=== PATIENT | female | born 1970 | race Asian ===

== ENCOUNTER 2018-03-07 17:28 | Inpatient (IN) ==
--- NOTE | 2018-03-07 18:01 | Emergency Department Note ---
Disposition Clinical Impression: Pleural effusion, Enlarged lymph nodes, Mass of upper lobe of right lung Disposition: Admitted As Inpatient Condition: Good General Adult HPI - General Chief complaint: ED Shortness of Breath/Dyspnea Stated complaint: "possible lung collapsed" Time Seen by Provider: 03/07/18 17:38 Source: patient, agent contract clerk Limitations: no limitations Nursing Notes Reviewed: Yes Vital Signs Reviewed: Yes - History of Present Illness HPI Narrative: 47 y/o F without siginificant medical history comes in with a possible diagnosis of R side pneumothorax diagnosed via CXR during an orthopedist appointment today. Patient states that 4-5 months ago she fell, hitting her right ride on a table. She had some immediate pain following that incident but the pain resolved on its own. She states that she then noticed onset of a non- productive cough shortly after that which has persisted for the last 3-4 months. She noticed onset of pain again in her right lateral and anterior chest 2 months ago worsened with breathing and exertion. She had onset of SOB 1 month ago along with the pain. She cannot recall an exact mechanism or time when either began. During evaluation for the pain she had a CXR done earlier today which revealed a likely pneumothorax. She denies fever, nausea, vomiting, diarrhea, LOC or abd pain. Pain Scale: 8 - Related Data Home Medications Medication Instructions Recorded Confirmed No Known Home Drugs 03/07/18 03/07/18 Allergies Allergy/AdvReac Type Severity Reaction Status Date / Time No Known Allergies Allergy Verified 03/08/16 14:08 Review of Systems: As Per HPI Constitutional: Denies: fever, chills, weight change, night sweats ENT ED: Denies: congestion Cardiovascular: Reports: chest pain, dyspnea on exertion Respiratory: Reports: dyspnea Gastrointestinal: Denies: abdominal pain, nausea, vomiting Genitourinary: Denies: urgency, dysuria Musculoskeletal: Denies: back pain, neck pain Integumentary: Denies: rash, abrasion, lesions Neurological: Denies: headache, weakness, numbness Endocrine: Denies: fatigue Past Medical History - Past Medical History Medical history: Reports: no medical history Psychiatric history: Reports: no psych history - Social History Smoking Status: Never smoker Smokeless Tobacco Status: No Alcohol use: Reports: none Physical Exam General: Well appearing, nontoxic, no acute distress Head: Normocephalic Atraumatic Eyes: PERRL, EOMI ENT: Airway patent, no stridor Neck: supple, no meningismus Chest: Decreased breath sounds on the right Cardiac: Regular rate and rhythm, no murmurs, rubs or gallops Abdomen: soft, nontender, nondistended; no guarding, rebound, or tenderness to percussion Musculoskeletal: Calves symmetric, nontender, no palpable cord Skin: No rash, normal skin tone Neuro: Alert and Oriented to person, place, and time; No focal deficit, CN 2-12 symmetric and intact - General Limitations: no limitations General appearance: alert, in no apparent distress Course - Reevaluation(s) Reevaluation #1: Patient's blood work is unremarkable. CT scan concerning for right upper lobe mass with significant pleural effusion and mediastinal lymph node enlargement concerning for metastatic disease. I did discuss with CT surgery and they recommended oncology consult as well as possible IR biopsy but that they did not need to take any fluid off the patient due to concern for reexpansion injury. They will evaluate the patient if further need is considered. At this time they do not need to consult on the patient in the hospital. Patient's clinical condition has likely been progressive over the last several weeks to month. The patient is not an extremist. No intervention within the emergency department. Patient be admitted to the hospitalist service. - Consultations Consultation #1: Discussed with hospitalist. Patient accepted for admission. Vital Signs Temperature 98 F 03/07/18 17:36 Pulse Rate 89 03/07/18 17:36 Respiratory Rate 24 03/07/18 17:36 Blood Pressure 141/95 03/07/18 17:36 O2 Sat by Pulse Oximetry 98 03/07/18 17:36 Temperature 98.7 F 03/08/18 19:58 Pulse Rate 83 03/08/18 19:58 Respiratory Rate 16 03/08/18 19:58 Blood Pressure 125/87 03/08/18 19:58 O2 Sat by Pulse Oximetry 95 03/08/18 19:58 Oxygen Delivery Oxygen Delivery Room Air Medical Decision Making - Lab Data Result diagrams: 03/08/18 00:41 03/08/18 00:41 Lab Results 03/07/18 03/07/18 03/07/18 Range/Units 18:00 18:00 18:00 WBC 7.4 (4.3-11.1) K/mcL RBC 4.81 (3.82-4.97) M/mcL Hgb 14.4 (11.5-15.4) g/dL Hct 44.6 (35.3-44.9) % MCV 92.7 (83.0-100.0) fL MCH 29.9 (28.0-33.3) pg MCHC 32.3 (31.6-35.5) g/dL RDW 13.5 (11.5-14.5) % Plt Count 327 (140-400) K/mcL MPV 9.9 (9.4-12.4) fL Immature Gran % 0.4 (0-4) % Seg Neutrophils % 64.1 % Lymphocytes % 24.4 % Monocytes % 8.1 % Eosinophils % 2.3 % Basophils % 0.7 % Neutrophils # 4.8 (1.6-8.9) K/mcL Lymphocytes # 1.8 (0.6-4.6) K/mcL Monocytes # 0.6 (0.0-1.3) K/mcL Eosinophils # 0.2 (0.0-0.6) K/mcL Basophils # 0.1 (0.0-0.2) K/mcL PT 11.3 (9.4-12.1) Seconds INR 1.0 Sodium 138 (136-145) mEq/L Potassium 3.9 (3.5-5.1) mEq/L Chloride 105 (98-107) mEq/L Carbon Dioxide 27 (23-29) mEq/L BUN 13 (6-20) mg/dL Creatinine 0.53 L (0.60-1.20) mg/dL Est GFR ( Amer) > 60 (> 60) Est GFR (Non-Af Amer) > 60 (> 60) BUN/Creatinine Ratio 25 (6-26) Glucose 91 (70-105) mg/dL Calculated Osmolality 286 (280-300) Lactic Acid (0.5-2.2) mmol/L Calcium 9.0 (8.6-10.3) mg/dL Troponin I < 0.03 (< 0.04) ng/mL 03/07/18 Range/Units 18:00 WBC (4.3-11.1) K/mcL RBC (3.82-4.97) M/mcL Hgb (11.5-15.4) g/dL Hct (35.3-44.9) % MCV (83.0-100.0) fL MCH (28.0-33.3) pg MCHC (31.6-35.5) g/dL RDW (11.5-14.5) % Plt Count (140-400) K/mcL MPV (9.4-12.4) fL Immature Gran % (0-4) % Seg Neutrophils % % Lymphocytes % % Monocytes % % Eosinophils % % Basophils % % Neutrophils # (1.6-8.9) K/mcL Lymphocytes # (0.6-4.6) K/mcL Monocytes # (0.0-1.3) K/mcL Eosinophils # (0.0-0.6) K/mcL Basophils # (0.0-0.2) K/mcL PT (9.4-12.1) Seconds INR Sodium (136-145) mEq/L Potassium (3.5-5.1) mEq/L Chloride (98-107) mEq/L Carbon Dioxide (23-29) mEq/L BUN (6-20) mg/dL Creatinine (0.60-1.20) mg/dL Est GFR ( Amer) (> 60) Est GFR (Non-Af Amer) (> 60) BUN/Creatinine Ratio (6-26) Glucose (70-105) mg/dL Calculated Osmolality (280-300) Lactic Acid 0.9 (0.5-2.2) mmol/L Calcium (8.6-10.3) mg/dL Troponin I (< 0.04) ng/mL
[2018-03-07 18:16] LABS: Basophils # 0.1 K/mcL (0.0-0.2); Basophils % 0.7 %; Eosinophils # 0.2 K/mcL (0.0-0.6); Eosinophils % 2.3 %; Hematocrit 44.6 % (35.3-44.9); Hemoglobin 14.4 g/dL (11.5-15.4); Immature Granulocytes % 0.4 % (0-4); Lymphocytes # 1.8 K/mcL (0.6-4.6); Lymphocytes % 24.4 %; Mean Corpuscular HGB Conc 32.3 g/dL (31.6-35.5); Mean Corpuscular Hemoglobin 29.9 pg (28.0-33.3); Mean Corpuscular Volume 92.7 fL (83.0-100.0); Mean Platelet Volume 9.9 fL (9.4-12.4); Monocytes # 0.6 K/mcL (0.0-1.3); Monocytes % 8.1 %; Neutrophils # 4.8 K/mcL (1.6-8.9); Platelet Count 327 K/mcL (140-400); Red Blood Count 4.81 M/mcL (3.82-4.97); Red Cell Distribution Width 13.5 % (11.5-14.5); Segmented Neutrophils % 64.1 %
[2018-03-07 18:26] LABS: Prothrombin Time 11.3 Seconds (9.4-12.1)
[2018-03-07 18:35] LABS: BUN/Creatinine Ratio 25 (6-26); Blood Urea Nitrogen 13 mg/dL (6-20); Carbon Dioxide 27 mEq/L (23-29); Chloride 105 mEq/L (98-107); Glucose 91 mg/dL (70-105); Osmolality,Calculated 286 (280-300); Potassium 3.9 mEq/L (3.5-5.1); Sodium 138 mEq/L (136-145); eGFR For Non-African Americans > 60 (> 60)
[2018-03-07 18:36] LABS: Troponin I < 0.03 ng/mL (< 0.04)
[2018-03-07] MEDS ORDERED: Acetaminophen 325 MG TABLET PO PRN (21:40)
[2018-03-07] MEDS ORDERED: Albuterol 2.5 MG/3 ML NEBULIZER IH PRN (21:40)
[2018-03-07] MEDS ORDERED: Naloxone 0.4 MG/ML INJ IVP PRN (21:40)
--- NOTE | 2018-03-07 22:07 | Internal Med History&Physical ---
Date of Encounter: 03/07/18 Time of Encounter: 19:50 Internal Medicine - H&P: HPI Chief complaint: chest pain; SOB Admitted From: Emergency Dept Plans for Post Hospital Care: Home History of present illness: Ms. Jauregui is a 47 year old female [facility] of [facility] pain and suspected pneumothorax. She was seeing someone in orthopedics for pain in her shoulder. They obtained shoulder x-ray followed by chest x-ray confirming what appeared to be a large pleural effusion initially thought to be pneumothorax. She was sent to the ER with complaints of chest pain and shoulder pain in her right side as well as a dyspnea. Workup included a CT of the chest which confirmed a large right pleural effusion and a soft tissue mass in the right upper lobe with invasion to the mediastinum concerning for malignancy. As such, she was admitted to hospitalist service. Of note, patient is of [place] descent and only speaks Mandarin language. There was an custody assistant in the ER who interpreted all the history, questions, and conveyed our information to the patient. I met patient in the ER and discussed the situation with her via the custody assistant. Patient states she has been having chest pain and shortness of breath for about 1 month duration now. She has had no fevers, chills, night sweats, weight loss, hemoptysis, or wheezing. She has had shortness of breath especially with exertion. She has had right-sided chest pain. She has had purulent and mucus productive sputum. She does not smoke and never has smoked. However, she lives with several roommates who do smoke. 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 She has been in the [place] 17 years. She denies any exposure in the past to tuberculosis either in [place] or [facility]. There is no family history of lung pathology or lung cancer that she is aware of. Both her parents are still alive and neither of them have any lung pathology. Past Med Surg Social Fam HX - Past Medical History Attestation: Yes The following information was validated with the patient. Source: other (custody assistant) Medical history: no medical history Psychiatric history: no psych history - Past Surgical History Surgical History: no surgical history - Social History Smoking Status: Never smoker Smokeless Tobacco Status: No Alcohol use: none Drug use: none Occupational status: employed Current living situation: Other (with roommates/co-workers) Activity Level: Independent ambulation Recent Out of Country Travel Within the Last 8 Weeks: No - Family History Mother Living Status: Still Living Hx Family Respiratory Disorders: No Hx Family Cancer: No Father Living Status: Still Living Hx Family Respiratory Disorders: No Hx Family Cancer: No Internal Medicine - H&P: Meds No Known Home Drugs 03/07/18 [History] 3 Allergy/AdvReac Type Severity Reaction Status Date / Time No Known Allergies Allergy Verified 03/08/16 14:08 Review of systems: via custody assistant - Constitutional Constitutional: no chills, no fatigue, no fever(s), no night sweats, no weight loss - EENT Eyes: no blurry vision, no change in vision Ears: no ear pain, no tinnitus Nose, mouth and throat: no nasal congestion, no sore throat - Cardiovascular Cardiovascular ROS IM: chest pain, dyspnea, dyspnea on exertion, no orthopnea, no paroxysmal nocturnal dyspnea, no syncope - Respiratory Respiratory: cough, dyspnea, dyspnea on exertion, chest congestion, excessive phlegm production, change in phlegm color, no hemoptysis, no wheezing - Gastrointestinal Gastrointestinal: no abdominal pain, no diarrhea, no hematemesis, no hematochezia, no melena, no vomiting - Genitourinary Genitourinary: no dysuria, no flank pain, no hematuria - Musculoskeletal Musculoskeletal ROS IM: no arthralgias, no back pain - Integumentary Integumentary IM: no rash, no jaundice - Neurological Neurological ROS: no disequilibrium, no dizziness, no focal weakness, no frequent falls - Psychiatric Psychiatric: no anxiety, no depression - Endocrine Endocrine IM: no cold intolerance, no flushing, no polydipsia, no polyuria - Hematologic/Lymphatic Hematologic/Lymphatic: no easy bruising - Allergic/Immunologic Allergic/Immunologic: no wheezing, no GI upset with certain foods - Constitutional Vitals: Temp Pulse Resp BP Pulse Ox 97.6 F 83 14 133/92 95 03/07/18 21:25 03/07/18 21:25 03/07/18 21:25 03/07/18 21:25 03/07/18 21:25 General appearance: Present: cooperative, A&O X 3, pleasant, no acute distress Exam: see below - Head Head exam: Present: atraumatic, normal inspection - Eye Eye exam: Present: EOMI, normal appearance, PERRL. Absent: scleral icterus Pupils: Present: normal accommodation - ENT ENT exam: Present: mucous membranes moist, normal exam, normal oropharynx - Neck Neck exam general surgery: Present: full ROM, normal inspection, supple. Absent : lymphadenopathy, tenderness, nuchal rigidity, thyromegaly - Respiratory Respiratory exam: Present: decreased breath sounds (right base to upper third lung field). Absent: chest wall tenderness, rales, respiratory distress, rhonchi, wheezes - Cardiovascular Cardiovascular exam: Present: RRR, +S1, +S2. Absent: diastolic murmur, systolic murmur - GI/Abdominal GI/Abdominal exam: Present: normal bowel sounds, soft. Absent: guarding, hepatomegaly, mass, rebound, splenomegaly, tenderness - Extremities Exam Extremities exam: Present: full ROM, normal capillary refill, warm, radial pulses palpable and symmetrical. Absent: calf tenderness, joint swelling, pedal edema, tenderness - Back Exam Back exam: Present: normal inspection. Absent: CVA tenderness (L), CVA tenderness (R) - Neurological Exam Neurological exam: Present: alert, CN II-XII intact, oriented X3, no focal deficits - Psychiatric Psychiatric exam: Present: normal affect, normal mood - Skin Skin exam: Present: dry, intact, warm Additional comments: bruising on posterior thorax verified via custody assistant that she practices cupping and coining through her culture/background Internal Med - H&P Results - Labs CBC & Chem 7: 03/07/18 18:00 03/07/18 18:00 - EKG Data -: EKG Interpreted by Myself - EKG Data Prior EKG available for review: no EKG comments: 03/08/18 00:44 NSR; right and left arm leads reversed - Diagnostic Studies CT scan - chest Status: image reviewed by me (large right pleural effusion) - Assessment and plan (1) Pleural effusion Current Visit: Yes Status: Acute Assessment and plan: 1. Suspect malignant effusion but will treat for parapneumonic effusion until proven otherwise. 2. I ordered blood and sputum cultures. 3. Will place on Zosyn and Levaquin to cover CAP and aspiration type organisms. 4. Consult Pulmonary as she will likely need bronchoscopy and tbbx as well as diagnostic and therapeutic thoracentesis. 5. Consult oncology. 6. Oxygen and aerosols as needed for support. 7. All above explained to patient via custody assistant. (2) Chest pain Current Visit: Yes Status: Acute Assessment and plan: 1. Suspect pleuritic chest pain from effusion. 2. Will trend troponins and EKG's. 3. Will order ECHO. 4. Pain control as necessary. Qualifiers: Chest pain type: pleurodynia Qualified Code(s): R07.81 - Pleurodynia (3) Mass of upper lobe of right lung Current Visit: Yes Status: Acute Assessment and plan: 1. Patient in need of diagnostic work-up and tissue biopsy as above. 2. Oncology consulted. (4) Tenuous home situation Current Visit: Yes Status: Suspected Assessment and plan: 1. Concern for unsafe home situation -- living with roommates/co-workers who smoke, doesn't speak [place] despite living in [facility] 17 years, etc. 2. She does not report any concerns via custody assistant though. 3. Filler Spreader consulted. (5) DVT prophylaxis Current Visit: Yes Status: Acute Assessment and plan: 1. Heparin SQ.
[2018-03-07] MEDS: Ipratropium/Albuterol Neb 3 ML IH SCH (22:10)
[2018-03-07] MEDS: *HR* HYDROcodone/Acet 5/325 mg TABLET PO PRN (23:04)
[2018-03-07] MEDS: 0.9 % Sodium Chloride w KCl 20 MEQ/1,000 ML MLS IVC SCH (23:05)
[2018-03-07] MEDS: *HR* Heparin 5,000 UNIT/ML VIAL SQ SCH (23:05)
[2018-03-07] MEDS: Levofloxacin 750 MG/150 ML 750 MG/150 ML BAG IVPB SCH (23:06)
[2018-03-08 01:34] LABS: Basophils # 0.1 K/mcL (0.0-0.2); Basophils % 0.6 %; Eosinophils # 0.1 K/mcL (0.0-0.6); Eosinophils % 1.6 %; Hematocrit 40.8 % (35.3-44.9); Hemoglobin 13.5 g/dL (11.5-15.4); Immature Granulocytes % 0.4 % (0-4); Lymphocytes # 1.5 K/mcL (0.6-4.6); Lymphocytes % 17.8 %; Mean Corpuscular HGB Conc 33.1 g/dL (31.6-35.5); Mean Corpuscular Hemoglobin 30.2 pg (28.0-33.3); Mean Corpuscular Volume 91.3 fL (83.0-100.0); Mean Platelet Volume 10.2 fL (9.4-12.4); Monocytes # 0.6 K/mcL (0.0-1.3); Monocytes % 7.4 %; Platelet Count 313 K/mcL (140-400); Red Blood Count 4.47 M/mcL (3.82-4.97); Red Cell Distribution Width 13.5 % (11.5-14.5); Segmented Neutrophils % 72.2 %
[2018-03-08 01:40] LABS: Prothrombin Time 11.4 Seconds (9.4-12.1)
[2018-03-08 01:43] LABS: Activated Partial Thrombo Time 32.9 Seconds (26.0-36.0)
[2018-03-08] MEDS: Piperacillin/Tazobactam 3.375 GM in 0.9 % Sodium Chloride Mini Bag 100 ML IVPB SCH ×3 (01:49→15:50)
[2018-03-08 01:55] LABS: Alanine Aminotransferase 30 Units/L (7-52); Albumin 3.6 g/dL (3.5-5.7); Albumin/Globulin Ratio 1.1 (1.1-2.2); Alkaline Phosphatase 50 Units/L (34-104); Aspartate Amino Transferase 27 Units/L (13-39); BUN/Creatinine Ratio 22 (6-26); Bilirubin,Total 0.3 mg/dL (0.3-1.0); Blood Urea Nitrogen 10 mg/dL (6-20); Calcium 8.9 mg/dL (8.6-10.3); Carbon Dioxide 23 mEq/L (23-29); Chloride 106 mEq/L (98-107); Globulin 3.4 g/dL (2.4-3.5); Glucose 108 mg/dL (70-105); Magnesium 1.8 mg/dL (1.6-2.6); Osmolality,Calculated 286 (280-300); Potassium 3.5 mEq/L (3.5-5.1); Sodium 138 mEq/L (136-145); eGFR For Non-African Americans > 60 (> 60)
[2018-03-08] MEDS: Ipratropium/Albuterol Neb 3 ML IH SCH ×4 (03:48→21:56)
[2018-03-08] MEDS: *HR* Heparin 5,000 UNIT/ML VIAL SQ SCH ×2 (06:35→18:36)
--- NOTE | 2018-03-08 08:35 | Pulmonology Consult Note ---
<Citlaly Wagner - Last Filed: 03/08/18 13:05> Date of Encounter: 03/08/18 Medications and Allergies No Known Home Drugs 03/07/18 [History] 3 Allergy/AdvReac Type Severity Reaction Status Date / Time No Known Allergies Allergy Verified 03/08/16 14:08 All Systems: The remainder of the systems were reviewed and are negative Results - Laboratory Findings CBC and BMP: 03/08/18 00:41 03/08/18 00:41 PT/INR, D-dimer PT 11.4 Seconds (9.4-12.1) 03/08/18 00:41 Abnormal lab findings: Abnormal lab results Creatinine 0.46 mg/dL (0.60-1.20) L 03/08/18 00:41 Glucose 108 mg/dL (70-105) H 03/08/18 00:41 - Microbiology Findings Microbiology Findings: Microbiology, Last 48 Hours 03/07/18 22:08 Blood Culture - Preliminary Peripheral Venipuncture Culture is incubating and being continuously monitored for growth. Final report to follow. 03/07/18 22:08 Blood Culture - Preliminary Peripheral Venipuncture Culture is incubating and being continuously monitored for growth. Final report to follow. - Clinical Findings Intake & Output: Intake & Output 03/07/18 03/08/18 03/08/18 23:59 07:59 15:59 Intake Total 0 / 0 250 / 250 Output Total 0 / 0 Balance 0 / 0 250 / 250 Weight 53.5 kg Consult Discharge Plan - Plan Referrals: NONE,PCP [Primary Care Provider] - - Attending Attestation I examined this patient and my medical decision-making was reviewed with the Resident Physician. I agree with the documented findings, disposition and treatment plan as described except to the extent set forth below. Patient seen and examined. Labs, radiology, chart personally reviewed. Agree with resident's history and physical, assessment, plan with following comments: REGIONAL EHS MANAGER: Patient follows commands, Pulmonary: Patient with massive right-sided pleural effusion which was examined with ultrasound and explained to the patient was transudate all the risks and benefits of the diagnostic and therapeutic draining the fluid with thoracentesis. I discussed with primary team differential diagnosis is broad, however concerned malignancies with size of the effusion and to repeat CT chest after draining the fluid and if there is any mass/lesion then we will plan for bronchoscopy. Patient can eat at this time and there is any further procedures need to be done then we will keep her nothing by mouth. Thank you for consultation. <Vineet Newby - Last Filed: 03/08/18 16:01> Date of Encounter: 03/08/18 Time of Encounter: 11:00 Assessment and Plan (1) Pleural effusion Current Visit: Yes Status: Acute -Is hard to delineate the exact cause of pleural effusion. It is difficult to obtain patient's past medical history because she does not understand [place], and secondly patient has no health insurance therefore hasn't seen a provider for a long time. CTA showed a giant pleural effusion and she is status post thoracentesis which drained 1.5 L of pleural fluid. Also evidence of 4.63.5 Center soft tissue mass centered in the right upper lobe in patient with concerns for neoplasm. -Pleural fluid analysis is pending , cultures pending - She currently satting at 96% on room air. We will continue to monitor (2) Chest pain Current Visit: Yes Status: Acute -Patient came to the ER with chest pain. Initial workup was negative for any troponins EKG is normal her echo showed LVEF of 60-65% with normal wall function abnormalities. -She is currently status post thoracentesis. Her chest pain is better. -Continue to monitor. Pain control RPN Qualifiers: Chest pain type: pleurodynia Qualified Code(s): R07.81 - Pleurodynia History of Present Illness Consult date: 03/08/18 Chief complaint: chest pain History of present illness: Ms. Juventino velasco is a 47-year-old female who presented to the ER yesterday because of chest pain. Her workup was negative for troponins, EKG was normal. CTA showed large right pleural effusion with complete atelectasis of the right middle lobe and lower lobe. There is also a 4.63.5 cm soft tissue mass in the right upper lobe. We are consulted for this. Patient is currently status post thoracentesis and approximately 1.5 L of serosanguineous fluid was drained. Patient tolerated the procedure very well and endorses that she is breathing better as of now. Past Med Surg Social Fam HX - Past Medical History Medical history: no medical history Psychiatric history: no psych history - Past Surgical History Surgical History: no surgical history - Social History Smoking Status: Never smoker Smokeless Tobacco Status: No Alcohol use: none Drug use: none - Family History Mother Living Status: Still Living Hx Family Respiratory Disorders: No Hx Family Cancer: No Father Living Status: Still Living Hx Family Respiratory Disorders: No Hx Family Cancer: No All Systems: The remainder of the systems were reviewed and are negative Physical Examination Vital Signs: Vital Signs, Last 4 Hours Temp Pulse Resp BP Pulse Ox 03/08/18 06:43 98.1 F 93 12 119/86 96 General appearance: no acute distress Effort: normal (s/p thoracentesis) Auscultation: bilateral: clear Cardiovascular: regular rate and rhythm Gastrointestinal: soft, non-tender, non-distended Extremities: no cyanosis, no edema, no clubbing Results - Laboratory Findings CBC and BMP: 03/08/18 00:41 03/08/18 00:41 PT/INR, D-dimer PT 11.4 Seconds (9.4-12.1) 03/08/18 00:41 Abnormal lab findings: Abnormal lab results Creatinine 0.46 mg/dL (0.60-1.20) L 03/08/18 00:41 Glucose 108 mg/dL (70-105) H 03/08/18 00:41 - Microbiology Findings Microbiology Findings: Microbiology, Last 48 Hours 03/07/18 22:08 Blood Culture - Preliminary Peripheral Venipuncture Culture is incubating and being continuously monitored for growth. Final report to follow. 03/07/18 22:08 Blood Culture - Preliminary Peripheral Venipuncture Culture is incubating and being continuously monitored for growth. Final report to follow. - Clinical Findings Intake & Output: Intake & Output 03/07/18 03/08/18 03/08/18 23:59 07:59 15:59 Intake Total 0 / 0 Output Total 0 / 0 Balance 0 / 0 Weight 53.5 kg
[2018-03-08] MEDS ORDERED: Isovue-370 500 ML INFUS..BTL IV ONE ×2 (11:47→17:48)
--- NOTE | 2018-03-08 11:49 | Procedure Note ---
<Citlaly Wagner - Last Filed: 03/08/18 13:04> Procedure: I examined this patient and my medical decision-making was reviewed with the Resident Physician. I agree with the documented findings, disposition and treatment plan as described except to the extent set forth below. I have personally supervised Dr. Newby performing procedure without immediate complications. <Vineet Newby - Last Filed: 03/08/18 15:59> Date of procedure: 03/08/18 Pre-op diagnosis: pleural effusion Post-op diagnosis: same Procedure: Informed consent was obtained from the patient. Time out performed. Area of pleural effusion was identified by ultrasound and site was marked. Area over right back was prepped and draped in normal sterile technique, and anesthetized using 3cc of lidocaine. A 20 guage needle/catheter was advanced into the pleural space and serosanguineous fluid was seen in the syringe. Approximately 1500cc of fluid was drained. Pt tolerated the procedure well, EBL was none. Post -procedure CT showed resolution of the right sided pleural effusion with no evidence of pneumothorax. Specimen was sent to lab. Anesthesia: local Surgeon: Citlaly Wagner Was there an assistant county attorney present: Yes Health Aide: Vineet Newby Estimated blood loss (cc): 2 Specimen: pleural fluid Condition: stable Disposition: floor
[2018-03-08 15:30] LABS: Total Protein,Pleural Fluid 5.3 g/dL (No Ref Range)
--- NOTE | 2018-03-08 16:14 | Oncology Inp Consult Note ---
<Sofi Villanueva Amber - Last Filed: 03/08/18 17:46> Date of Encounter: 03/08/18 Time of Encounter: 15:30 Assessment and Plan (1) Mass of upper lobe of right lung Status: Acute Assessment and plan: CT chest reveals a large right upper lobe heterogeneous mass abutting the anterior mediastinum measuring 3.5 x 3.9 cm., diffuse mediastinal lymphadenopathy involving the paratracheal, subcarinal and right suprahilar regions, pleural-based nodules seen throughout the right chest, with diffuse pleural enhancement and a large right-sided pleural effusion. There are 2 small low-attenuation lesions under 1 cm in size noted within the liver which are too small to characterize-CT abdomen/pelvis for further assessment of abdomen CBC and CMP mainly unremarkable, LDH normal Findings are concerning for malignancy- lymphoma or lung primary, among others. S/P right thoracentesis-cytology ordered and pending. Need tissue bx-made NPO for tomorrow AM-bx dependant upon CT abdomen/pelvis results-recommend core needle bx versus bronchoscopy Pulmonology consulted Findings and plan discussed with patient at bedside with use of interpreting service. - Data of Consult Patient: new to practice Consult date: 03/08/18 Requesting Physician: James Broderick Primary Care Provider: PCP NONE - Consult Narrative Reason for consult: Right upper lobe lung mass History of present illness: Ms. Jauregui is a 47 year old female in [facility] until about 2 months prior to current admission. Patient states that about 2 months ago she began to experience right upper back pain/scapular/chest pain that was exacerbated by inspiratory efforts. She reports no prior injury. This pain was not relieved by NSAIDs, cupping massage and eventually led her to presentation to orthopedics on 2017. A chest x-ray was obtained with concern for pneumothorax with large right sided pleural effusion and patient was asked to present to the ER. CT of the chest revealed a large right upper lobe heterogeneous mass abutting the anterior mediastinum measuring 3.5 x 3.9 cm. There is also diffuse mediastinal lymphadenopathy involving the paratracheal, subcarinal and right suprahilar regions. There also several metastatic pleural-based nodules seen throughout the right chest, with diffuse pleural enhancement and a large right- sided pleural effusion. No pneumothorax was identified. Patchy ground glass within right lung concerning for infectious process. There are 2 small low- attenuation lesions under 1 cm in size noted within the liver which are too small to characterize. Ms. Jauregui speaks Mandarin and very little French, a health system appointed interpreting service was utilized during our visit today. In addition to the pain as described above, Ms. Jauregui reports that she has experienced worsening SOB and non productive cough over the past month. She denies hemoptysis. Her pain and SOB have increased to the point that she has been unable to work over the past month. She needs a rest break after climbing one flight of stairs. She reports she feels SOB with talking or long conversations. She denies fevers or chills. She is a never smoker. She denies a personal or family history of cancer. Past Med Surg Social Fam HX - Past Medical History Medical history: no medical history Psychiatric history: no psych history - Past Surgical History Surgical History: no surgical history - Social History Smoking Status: Never smoker Smokeless Tobacco Status: No Alcohol use: none Drug use: none - Family History Mother Living Status: Still Living Hx Family Respiratory Disorders: No Hx Family Cancer: No Father Living Status: Still Living Hx Family Respiratory Disorders: No Hx Family Cancer: No Medications and Allergies No Known Home Drugs 03/07/18 [History] 3 Allergy/AdvReac Type Severity Reaction Status Date / Time No Known Allergies Allergy Verified 03/08/16 14:08 Constitutional: Present: anorexia, fatigue, weakness. Absent: chills, fever(s) , night sweats, weight loss Eyes: Absent: change in vision Nose, mouth and throat: Absent: dysphagia Cardiovascular: Present: as per HPI, chest pain, dyspnea, orthopnea Additional comments: pain radiating to right scalpula Respiratory: Present: cough, dyspnea. Absent: hemoptysis Gastrointestinal: Absent: abdominal pain, nausea, vomiting Musculoskeletal: Present: muscle weakness Integumentary: Absent: wounds Neurological: Absent: focal weakness Hematologic/Lymphatic: Present: as per HPI Oncology - Exam - Constitutional Vitals: Temp Pulse Resp BP Pulse Ox 98.0 F 80 15 129/85 97 03/08/18 14:18 03/08/18 14:18 03/08/18 16:07 03/08/18 14:18 03/08/18 16:07 General appearance: cooperative, no acute distress, no febrile - Head Head exam: Present: atraumatic - ENT ENT exam: Present: mucous membranes moist - Neck Additional comments: right cervical adenopathy - Respiratory Respiratory exam: Present: decreased breath sounds. Absent: respiratory distress - Cardiovascular Cardiovascular exam: Present: RRR, +S1, +S2 - GI/Abdominal GI/Abdominal exam: Present: normal bowel sounds, soft. Absent: guarding, rebound, tenderness - Extremities Exam Extremities exam: Present: normal inspection. Absent: calf tenderness - Neurological Exam Neurological exam: Present: alert, oriented X3, no focal deficits, strengths equal and symetr throughout - Psychiatric Psychiatric exam: Present: normal affect, normal mood - Skin Skin exam: Present: dry, intact, normal color, warm Oncology - Results Labs: 3 03/08/18 03/08/18 03/08/18 12:00 11:47 11:47 WBC RBC Hgb Hct MCV MCH MCHC RDW Plt Count MPV Immature Gran % Seg Neutrophils % Lymphocytes % Monocytes % Eosinophils % Basophils % Neutrophils # Lymphocytes # Monocytes # Eosinophils # Basophils # PT INR APTT Sodium Potassium Chloride Carbon Dioxide BUN Creatinine Est GFR ( Amer) Est GFR (Non-Af Amer) BUN/Creatinine Ratio Glucose Calculated Osmolality Calcium Magnesium Total Bilirubin AST ALT Alkaline Phosphatase Lactate Dehydrogenase 190 Troponin I Serum Total Protein Albumin Globulin Albumin/Globulin Ratio Pleural pH 8.00 Pleural Total Protein 5.3 Pleural Glucose 67 Pleural Amylase 36 3 03/08/18 03/08/18 03/08/18 06:17 00:41 00:41 WBC RBC Hgb Hct MCV MCH MCHC RDW Plt Count MPV Immature Gran % Seg Neutrophils % Lymphocytes % Monocytes % Eosinophils % Basophils % Neutrophils # Lymphocytes # Monocytes # Eosinophils # Basophils # PT 11.4 INR 1.0 APTT 32.9 Sodium 138 Potassium 3.5 Chloride 106 Carbon Dioxide 23 BUN 10 Creatinine 0.46 L Est GFR ( Amer) > 60 Est GFR (Non-Af Amer) > 60 BUN/Creatinine Ratio 22 Glucose 108 H Calculated Osmolality 286 Calcium 8.9 Magnesium 1.8 Total Bilirubin 0.3 AST 27 ALT 30 Alkaline Phosphatase 50 Lactate Dehydrogenase Troponin I < 0.03 Serum Total Protein 7.0 Albumin 3.6 Globulin 3.4 Albumin/Globulin Ratio 1.1 Pleural pH Pleural Total Protein Pleural Glucose Pleural Amylase 3 03/08/18 03/08/18 00:41 00:41 WBC 8.3 RBC 4.47 Hgb 13.5 Hct 40.8 MCV 91.3 MCH 30.2 MCHC 33.1 RDW 13.5 Plt Count 313 MPV 10.2 Immature Gran % 0.4 Seg Neutrophils % 72.2 Lymphocytes % 17.8 Monocytes % 7.4 Eosinophils % 1.6 Basophils % 0.6 Neutrophils # 6.0 Lymphocytes # 1.5 Monocytes # 0.6 Eosinophils # 0.1 Basophils # 0.1 PT INR APTT Sodium Potassium Chloride Carbon Dioxide BUN Creatinine Est GFR ( Amer) Est GFR (Non-Af Amer) BUN/Creatinine Ratio Glucose Calculated Osmolality Calcium Magnesium Total Bilirubin AST ALT Alkaline Phosphatase Lactate Dehydrogenase Troponin I < 0.03 Serum Total Protein Albumin Globulin Albumin/Globulin Ratio Pleural pH Pleural Total Protein Pleural Glucose Pleural Amylase Consult Discharge Plan - Plan Referrals: NONE,PCP [Primary Care Provider] - <Aiden Silver - Last Filed: 03/09/18 08:12> Date of Encounter: 03/09/18 - Data of Consult Requesting Physician: James Broderick Primary Care Provider: PCP NONE - Consult Narrative History of present illness: Pulmonary evaluation for bronchoscopy, tissue diagnosis. CT abd pelvis with contrast to be obtained later today. She had denied smoking history. I examined this patient and my medical decision-making was reviewed with the Advanced Practice Nurse, Sofi Villanueva. I agree with the documented findings, disposition and treatment plan as described except to the extent set forth below. Oncology - Exam - Constitutional Vitals: Temp Pulse Resp BP Pulse Ox 97.6 F 79 15 109/72 96 03/09/18 06:19 03/09/18 06:19 03/09/18 06:19 03/09/18 06:19 03/09/18 06:19 Oncology - Results Labs: 3 03/09/18 03/08/18 03/08/18 05:21 12:00 11:47 WBC RBC Hgb Hct MCV MCH MCHC RDW Plt Count MPV Immature Gran % Seg Neutrophils % Lymphocytes % Monocytes % Eosinophils % Basophils % Neutrophils # Lymphocytes # Monocytes # Eosinophils # Basophils # PT INR APTT Sodium Potassium Chloride Carbon Dioxide BUN Creatinine Est GFR ( Amer) Est GFR (Non-Af Amer) BUN/Creatinine Ratio Glucose POC Glucose 101 H Calculated Osmolality Calcium Magnesium Total Bilirubin AST ALT Alkaline Phosphatase Lactate Dehydrogenase 190 Troponin I Serum Total Protein Albumin Globulin Albumin/Globulin Ratio Pleural pH 8.00 Pleural Total Protein Pleural Glucose Pleural Amylase 3 03/08/18 03/08/1803/08/18 11:47 06:17 05:29 WBC RBC Hgb Hct MCV MCH MCHC RDW Plt Count MPV Immature Gran % Seg Neutrophils % Lymphocytes % Monocytes % Eosinophils % Basophils % Neutrophils # Lymphocytes # Monocytes # Eosinophils # Basophils # PT INR APTT Sodium Potassium Chloride Carbon Dioxide BUN Creatinine Est GFR ( Amer) Est GFR (Non-Af Amer) BUN/Creatinine Ratio Glucose POC Glucose 109 H Calculated Osmolality Calcium Magnesium Total Bilirubin AST ALT Alkaline Phosphatase Lactate Dehydrogenase Troponin I < 0.03 Serum Total Protein Albumin Globulin Albumin/Globulin Ratio Pleural pH Pleural Total Protein 5.3 Pleural Glucose 67 Pleural Amylase 36 3 03/08/18 03/08/18 03/08/18 00:41 00:41 00:41 WBC 8.3 RBC 4.47 Hgb 13.5 Hct 40.8 MCV 91.3 MCH 30.2 MCHC 33.1 RDW 13.5 Plt Count 313 MPV 10.2 Immature Gran % 0.4 Seg Neutrophils % 72.2 Lymphocytes % 17.8 Monocytes % 7.4 Eosinophils % 1.6 Basophils % 0.6 Neutrophils # 6.0 Lymphocytes # 1.5 Monocytes # 0.6 Eosinophils # 0.1 Basophils # 0.1 PT 11.4 INR 1.0 APTT 32.9 Sodium 138 Potassium 3.5 Chloride 106 Carbon Dioxide 23 BUN 10 Creatinine 0.46 L Est GFR ( Amer) > 60 Est GFR (Non-Af Amer) > 60 BUN/Creatinine Ratio 22 Glucose 108 H POC Glucose Calculated Osmolality 286 Calcium 8.9 Magnesium 1.8 Total Bilirubin 0.3 AST 27 ALT 30 Alkaline Phosphatase 50 Lactate Dehydrogenase Troponin I Serum Total Protein 7.0 Albumin 3.6 Globulin 3.4 Albumin/Globulin Ratio 1.1 Pleural pH Pleural Total Protein Pleural Glucose Pleural Amylase 3 03/08/18 00:41 WBC RBC Hgb Hct MCV MCH MCHC RDW Plt Count MPV Immature Gran % Seg Neutrophils % Lymphocytes % Monocytes % Eosinophils % Basophils % Neutrophils # Lymphocytes # Monocytes # Eosinophils # Basophils # PT INR APTT Sodium Potassium Chloride Carbon Dioxide BUN Creatinine Est GFR ( Amer) Est GFR (Non-Af Amer) BUN/Creatinine Ratio Glucose POC Glucose Calculated Osmolality Calcium Magnesium Total Bilirubin AST ALT Alkaline Phosphatase Lactate Dehydrogenase Troponin I < 0.03 Serum Total Protein Albumin Globulin Albumin/Globulin Ratio Pleural pH Pleural Total Protein Pleural Glucose Pleural Amylase
--- NOTE | 2018-03-08 18:39 | Internal Med Progress Note ---
Hospitalist Progress Note - Encounter Date of Encounter: 03/08/18 Time of Encounter: 11:00 - Subjective Interval History: Patient reports that shortness of breath has improved status post thoracentesis were over 1.5 L of serosanguineous fluid was drained; cytology pending CT of the chest with findings concerning for malignancy; hematology/oncology following - Exam Vitals: Temp Pulse Resp BP Pulse Ox 98.0 F 80 15 129/85 97 03/08/18 14:18 03/08/18 14:18 03/08/18 16:07 03/08/18 14:18 03/08/18 16:07 Exam: Gen.: Nonacute distress, alert and oriented 3 ENT: Mucosal membranes moist Respiratory: Lungs are clear to auscultation bilaterally without any wheezing rhonchi or rales Cardiovascular: Normal S1 and S2 regular rate rhythm no murmurs rubs or gallops Abdomen: Soft, nontender and nondistended with positive bowel sounds Extremities: No lower extremity edema Skin: Normal color - Assessment and Plan (1) Pleural effusion Current Visit: Yes Status: Acute Assessment and Plan: Large right pleural effusion detected on imaging and pulmonology consulted status post thoracentesis with over 1.5 L of serosanguineous fluid removed Cytology pending; concerns for malignancy Hematology/oncology following as below (2) Mass of upper lobe of right lung Current Visit: Yes Status: Acute Assessment and Plan: Repeat CT of the chest showed a large right upper lobe heterogeneous mass abutting the anterior mediastinum you in addition to diffuse mediastinal lymphadenopathy involving the peritracheal, subcarinal and right suprahilar regions also seen were several metastatic pleural-based nodules seen throughout the right chest. Hematology oncology following and appreciate recommendations (3) Tenuous home situation Current Visit: Yes Status: Suspected Assessment and Plan: Concern for unsafe home situation -- living with roommates/co-workers who smoke , doesn't speak [place] despite living in [place] 17 years, etc. She did not report any concerns via digital project coordinator though. Paste Plant Supervisor consulted. DVT Prophylaxis: Subcutaneous heparin - Time Spent with Patient Total time spent is greater than 50% in coordination of care (as documented) at patient's floor/unit and/or counseling patient: Internal Medicine: Result - Labs CBC & Chem 7: 03/08/18 00:41 03/08/18 00:41 Labs: Short CBC 03/08/18 Range/Units 00:41 WBC 8.3 (4.3-11.1) K/mcL Hgb 13.5 (11.5-15.4) g/dL Hct 40.8 (35.3-44.9) % Plt Count 313 (140-400) K/mcL Neutrophils # 6.0 (1.6-8.9) K/mcL BMP 03/08/18 00:41 Sodium 138 Potassium 3.5 Chloride 106 Carbon Dioxide 23 BUN 10 Creatinine 0.46 L Glucose 108 H Calcium 8.9 Cardiac Enzymes 03/08/18 03/08/18 Range/Units 00:41 06:17 Troponin I < 0.03 < 0.03 (< 0.04) ng/mL Liver Function 03/08/18 Range/Units 00:41 Total Bilirubin 0.3 (0.3-1.0) mg/dL AST 27 (13-39) Units/L ALT 30 (7-52) Units/L Alkaline Phosphatase 50 (34-104) Units/L Albumin 3.6 (3.5-5.7) g/dL - ABG Interpretation ABG results: PT/INR, D-dimer PT 11.4 Seconds (9.4-12.1) 03/08/18 00:41 - Impressions Impressions Chest CT 03/08/18 11:47 IMPRESSION: Large right upper lobe heterogeneous mass abutting the anterior mediastinum measuring 3.5 x 3.9 cm. There is also diffuse mediastinal lymphadenopathy involving the paratracheal, subcarinal and right suprahilar regions. There also several metastatic pleural-based nodules seen throughout the right chest, with diffuse pleural enhancement and a large right-sided pleural effusion which is likely malignant as well. Mild decreased size of the right-sided pleural effusion when compared to the previous examination. No pneumothorax is identified. Patchy ground-glass and consolidative changes seen within the aerated portion of the right lung, with partial right middle and lower lobe atelectasis. Some of this may be related to an infectious process. There are 2 small low-attenuation lesions under 1 cm in size noted within the liver which are too small to characterize. D/ / Wilner Luna MD / Wilner Luna MD Interpreting Provider: Wilner Luna MD Echocardiogram 03/08/18 21:46 Impressions: LVEF 60-65%. Normal LV chamber size, wall thickness and function. Indeterminate diastolic function. No evidence of pulmonary hypertension. RVSP not well obtained and possibly underestimated. No significant valvular dysfunction. Consult Discharge Plan - Plan Referrals: NONE,PCP [Primary Care Provider] -
--- NOTE | 2018-03-08 19:00 | Electrocardiograph Report ---
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
[2018-03-08] MEDS: Levofloxacin 750 MG/150 ML 750 MG/150 ML BAG IVPB SCH (22:27)
[2018-03-08] MEDS: 0.9 % Sodium Chloride w KCl 20 MEQ/1,000 ML MLS IVC SCH (22:28)
[2018-03-09] MEDS: Piperacillin/Tazobactam 3.375 GM in 0.9 % Sodium Chloride Mini Bag 100 ML IVPB SCH ×3 (00:22→16:25)
[2018-03-09] MEDS: *HR* HYDROcodone/Acet 5/325 mg TABLET PO PRN ×3 (03:08→21:26)
[2018-03-09] MEDS: Ipratropium/Albuterol Neb 3 ML IH SCH ×4 (03:53→21:34)
[2018-03-09] MEDS: *HR* Heparin 5,000 UNIT/ML VIAL SQ SCH ×2 (05:23→18:02)
--- NOTE | 2018-03-09 08:37 | Pulmonology Progress Note ---
<Vineet Newby - Last Filed: 03/09/18 15:00> Date of Encounter: 03/09/18 Time of Encounter: 09:00 Assessment and Plan (1) Pleural effusion Current Visit: Yes Status: Acute -Had a massive pleural effusion and she underwent right sided thoracentesis which drained approximately 1.5 L of serosanguineous fluid. -Pleural fluid is exudative in nature (pleural protein/serum protein = 0.75) . Awaiting pleural cytology studies. With the new CT findings of heterogenous mass near the anterior mediastinum, diffuse mediastinal lymphadenopathy involving the paratracheal, subcarinal and right right suprahilar region, one cannot rule out the possibility of malignancy. -plan bronchoscopy tomorrow. Patient NPO after midnight. (2) Chest pain Current Visit: Yes Status: Acute -She came to the ER with chest pain was found to have a right-sided massive pleural effusion, she status post thoracentesis. -Her chest pain is better than yesterday. However she does endorse right anterior nonradiating rib pain . -Continue to monitor. Pain control PRN. Qualifiers: Chest pain type: pleurodynia Qualified Code(s): R07.81 - Pleurodynia (3) Mass of upper lobe of right lung Current Visit: Yes Status: Acute -CT chest reveals a large right upper lobe heterogeneous mass abutting the anterior mediastinum measuring 3.5 x 3.9 cm., diffuse mediastinal lymphadenopathy involving the paratracheal, subcarinal and right suprahilar regions, pleural-based nodules seen throughout the right chest, with diffuse pleural enhancement and a large right-sided pleural effusion- Nix could be concerning for malignancy. -Currently pleural cultures and cytology studies pending. - Oral cytology results pending. Plan for bronchoscopy tomorrow morning patient nothing by mouth after midnight. Subjective Principal diagnosis: pleural effusion Interval history: No acute events overnight. Patient is status post right sided thoracentesis which drained approximately 1.5 L of serosanguineous pleural fluid. Plueral cytology studies and cultures are pending. She endorses a right-sided chest pain which is non- positional, also endorses mild coughing. Patient underwent CT of her chest which showed right upper lobe heterogenous mass abutting the anterior mediastinum measuring 3.5 x 3.9 cm., diffuse mediastinal lymphadenopathy involving the paratracheal, subcarinal and right suprahilar regions, pleural-based nodules seen throughout the right chest, with diffuse pleural enhancement and a large right-sided pleural effusion. Findings are concerning for malignancy either primary or metastatis. oncology is on board. Objective PUL Vital signs: Last Vital Signs Temp 97.6 F 03/09/18 06:19 Pulse 79 03/09/18 06:19 Resp 15 03/09/18 06:19 BP 109/72 03/09/18 06:19 Pulse Ox 96 03/09/18 06:19 General appearance: no acute distress Effort: normal Auscultation: bilateral: clear, wheezes (no wheezing or ronchi) Cardiovascular: regular rate and rhythm Gastrointestinal: soft, non-tender, non-distended Extremities: no cyanosis, no edema, no clubbing Results - Laboratory Findings CBC and BMP: 03/09/18 11:44 03/09/18 11:44 PT/INR, D-dimer PT 11.4 Seconds (9.4-12.1) 03/08/18 00:41 Abnormal lab findings: Abnormal lab results Creatinine 0.46 mg/dL (0.60-1.20) L 03/08/18 00:41 Glucose 108 mg/dL (70-105) H 03/08/18 00:41 POC Glucose 101 mg/dL (70-99) H 03/09/18 05:21 - Microbiology Findings Microbiology Findings: Microbiology, Last 48 Hours 03/07/18 22:08 Blood Culture - Preliminary Peripheral Venipuncture Culture is incubating and being continuously monitored for growth. Final report to follow. 03/07/18 22:08 Blood Culture - Preliminary Peripheral Venipuncture Culture is incubating and being continuously monitored for growth. Final report to follow. - Clinical Findings Intake & Output: Intake & Output 03/08/18 03/09/18 03/09/18 23:59 07:59 15:59 Intake Total 100 / 100 250 / 250 Output Total 0 / 0 0 / 0 Balance 100 / 100 250 / 250 Weight 53 kg Consult Discharge Plan - Plan Referrals: NONE,PCP [Primary Care Provider] - <Citlaly Wagner - Last Filed: 03/10/18 07:46> Date of Encounter: 03/10/18 Objective PUL Vital signs: Last Vital Signs Temp 97.9 F 03/09/18 14:01 Pulse 75 03/09/18 14:01 Resp 15 03/09/18 14:01 BP 119/80 03/09/18 14:01 Pulse Ox 95 03/09/18 14:01 Results - Laboratory Findings CBC and BMP: 03/09/18 11:44 03/09/18 11:44 PT/INR, D-dimer PT 11.4 Seconds (9.4-12.1) 03/08/18 00:41 Abnormal lab findings: Abnormal lab results Potassium 3.2 mEq/L (3.5-5.1) L 03/09/18 11:44 Chloride 109 mEq/L (98-107) H 03/09/18 11:44 Carbon Dioxide 22 mEq/L (23-29) L 03/09/18 11:44 Creatinine 0.58 mg/dL (0.60-1.20) L 03/09/18 11:44 Glucose 118 mg/dL (70-105) H 03/09/18 11:44 POC Glucose 107 mg/dL (70-99) H 03/09/18 11:12 - Microbiology Findings Microbiology Findings: Microbiology, Last 48 Hours 03/07/18 22:08 Blood Culture - Preliminary Peripheral Venipuncture Culture is incubating and being continuously monitored for growth. Final report to follow. 03/07/18 22:08 Blood Culture - Preliminary Peripheral Venipuncture Culture is incubating and being continuously monitored for growth. Final report to follow. - Clinical Findings Intake & Output: Intake & Output 03/08/18 03/09/18 03/09/18 23:59 07:59 15:59 Intake Total 100 / 100 250 / 250 100 / 100 Output Total 0 / 0 0 / 0 0 / 0 Balance 100 / 100 250 / 250 100 / 100 Weight 53 kg - Attending Attestation I examined this patient and my medical decision-making was reviewed with the Resident Physician. I agree with the documented findings, disposition and treatment plan as described except to the extent set forth below. Patient seen and examined. Labs, radiology, chart personally reviewed. Agree with resident's history and physical, assessment, plan with following comments: HEM MARKER: Patient follows commands, Pulmonary: Acceptable oxygenation and ventilation. Patient cytology is still pending and we will tentatively plan for bronchoscopy if no result. This was explained to the patient through an paraprofessional interpreter at the bedside. Plan of care also discussed with the primary team. Please keep patient nothing by mouth postmidnight. Subsequently I discussed with the pathologist and unfortunately it appears this is malignant in nature and will hold doing bronchoscopy at this time. Cardiovascular: stable
[2018-03-09 12:32] LABS: Basophils # 0.1 K/mcL (0.0-0.2); Basophils % 0.8 %; Eosinophils # 0.1 K/mcL (0.0-0.6); Eosinophils % 2.3 %; Hematocrit 41.3 % (35.3-44.9); Hemoglobin 13.5 g/dL (11.5-15.4); Immature Granulocytes % 0.5 % (0-4); Lymphocytes # 1.5 K/mcL (0.6-4.6); Lymphocytes % 24.2 %; Mean Corpuscular HGB Conc 32.7 g/dL (31.6-35.5); Mean Corpuscular Hemoglobin 30.4 pg (28.0-33.3); Mean Platelet Volume 9.9 fL (9.4-12.4); Monocytes # 0.5 K/mcL (0.0-1.3); Monocytes % 7.6 %; Neutrophils # 3.9 K/mcL (1.6-8.9); Platelet Count 296 K/mcL (140-400); Red Blood Count 4.44 M/mcL (3.82-4.97); Red Cell Distribution Width 13.8 % (11.5-14.5); Segmented Neutrophils % 64.6 %
[2018-03-09 12:54] LABS: BUN/Creatinine Ratio 17 (6-26); Blood Urea Nitrogen 10 mg/dL (6-20); Calcium 8.8 mg/dL (8.6-10.3); Carbon Dioxide 22 mEq/L (23-29); Chloride 109 mEq/L (98-107); Glucose 118 mg/dL (70-105); Osmolality,Calculated 292 (280-300); Potassium 3.2 mEq/L (3.5-5.1); Sodium 141 mEq/L (136-145); eGFR For Non-African Americans > 60 (> 60)
--- NOTE | 2018-03-09 19:14 | Internal Med Progress Note ---
Hospitalist Progress Note - Encounter Date of Encounter: 03/09/18 Time of Encounter: 11:00 - Subjective Interval History: Patient reports that shortness of breath has improved status post thoracentesis were over 1.5 L of serosanguineous fluid was drained; cytology pending CT of the chest with findings concerning for malignancy; hematology/oncology following Patient scheduled for bronchoscopy per pulmonology recommendations on 03/10/18 - Exam Vitals: Temp Pulse Resp BP Pulse Ox 97.9 F 75 15 119/80 95 03/09/18 14:01 03/09/18 14:01 03/09/18 14:01 03/09/18 14:01 03/09/18 14:01 Exam: Gen.: Nonacute distress, alert and oriented 3 ENT: Mucosal membranes moist Respiratory: Lungs are clear to auscultation bilaterally without any wheezing rhonchi or rales Cardiovascular: Normal S1 and S2 regular rate rhythm no murmurs rubs or gallops Abdomen: Soft, nontender and nondistended with positive bowel sounds Extremities: No lower extremity edema Skin: Normal color - Assessment and Plan (1) Pleural effusion Current Visit: Yes Status: Acute Assessment and Plan: Large right pleural effusion detected on imaging and pulmonology consulted status post thoracentesis with over 1.5 L of serosanguineous fluid removed Cytology pending; concerns for malignancy Hematology/oncology following as below (2) Mass of upper lobe of right lung Current Visit: Yes Status: Acute Assessment and Plan: Repeat CT of the chest showed a large right upper lobe heterogeneous mass abutting the anterior mediastinum you in addition to diffuse mediastinal lymphadenopathy involving the peritracheal, subcarinal and right suprahilar regions also seen were several metastatic pleural-based nodules seen throughout the right chest. Hematology oncology following and appreciate recommendations Patient scheduled for bronchoscopy per pulmonology recommendations on 03/10/18 (3) Tenuous home situation Current Visit: Yes Status: Suspected Assessment and Plan: Concern for unsafe home situation -- living with roommates/co-workers who smoke , doesn't speak [place] despite living in [facility] 17 years, etc. She did not report any concerns via staff assistant though. Editor Producer consulted. DVT Prophylaxis: Subcutaneous heparin - Time Spent with Patient Total time spent is greater than 50% in coordination of care (as documented) at patient's floor/unit and/or counseling patient: Internal Medicine: Result - Labs CBC & Chem 7: 03/09/18 11:44 03/09/18 11:44 Labs: Short CBC 03/09/18 Range/Units 11:44 WBC 6.0 (4.3-11.1) K/mcL Hgb 13.5 (11.5-15.4) g/dL Hct 41.3 (35.3-44.9) % Plt Count 296 (140-400) K/mcL Neutrophils # 3.9 (1.6-8.9) K/mcL BMP 03/09/18 11:44 Sodium 141 Potassium 3.2 L Chloride 109 H Carbon Dioxide 22 L BUN 10 Creatinine 0.58 L Glucose 118 H Calcium 8.8 - ABG Interpretation ABG results: PT/INR, D-dimer PT 11.4 Seconds (9.4-12.1) 03/08/18 00:41 - Impressions Impressions Abdomen/Pelvis CT 03/09/18 12:30 IMPRESSION: 1. 4 tiny hepatic lesions very likely reflect cysts, unable to definitively characterize on CT. 2. Enhancing pleural-based lesions are noted inferior right hemithorax typical of metastasis. 3. Indeterminate uterine findings may be related to endometrial neoplasia or fibroids. Ultrasound correlation may be useful for better characterization. D/ / Fili Perez / Fili Perez Interpreting Provider: Fili Perez Consult Discharge Plan - Plan Referrals: NONE,PCP [Primary Care Provider] -
[2018-03-09] MEDS: Levofloxacin 750 MG/150 ML 750 MG/150 ML BAG IVPB SCH (21:26)
[2018-03-10] MEDS: Piperacillin/Tazobactam 3.375 GM in 0.9 % Sodium Chloride Mini Bag 100 ML IVPB SCH ×2 (00:13→08:54)
[2018-03-10] MEDS: Ipratropium/Albuterol Neb 3 ML IH SCH ×4 (04:23→22:01)
[2018-03-10 05:54] LABS: INR 1.1
[2018-03-10] MEDS: *HR* Heparin 5,000 UNIT/ML VIAL SQ SCH ×2 (06:47→17:28)
[2018-03-10] MEDS: *HR* HYDROcodone/Acet 5/325 mg TABLET PO PRN ×2 (06:47→22:24)
[2018-03-10 09:46] LABS: Basophils # 0.1 K/mcL (0.0-0.2); Basophils % 0.6 %; Eosinophils # 0.3 K/mcL (0.0-0.6); Eosinophils % 3.4 %; Hematocrit 40.9 % (35.3-44.9); Hemoglobin 13.4 g/dL (11.5-15.4); Immature Granulocytes % 0.3 % (0-4); Lymphocytes # 1.5 K/mcL (0.6-4.6); Lymphocytes % 19.9 %; Mean Corpuscular HGB Conc 32.8 g/dL (31.6-35.5); Mean Corpuscular Hemoglobin 30.1 pg (28.0-33.3); Mean Corpuscular Volume 91.9 fL (83.0-100.0); Mean Platelet Volume 9.8 fL (9.4-12.4); Monocytes # 0.5 K/mcL (0.0-1.3); Monocytes % 5.9 %; Neutrophils # 5.4 K/mcL (1.6-8.9); Platelet Count 295 K/mcL (140-400); Red Blood Count 4.45 M/mcL (3.82-4.97); Red Cell Distribution Width 13.8 % (11.5-14.5); Segmented Neutrophils % 69.9 %
[2018-03-10 09:58] LABS: BUN/Creatinine Ratio 19 (6-26); Blood Urea Nitrogen 10 mg/dL (6-20); Carbon Dioxide 21 mEq/L (23-29); Chloride 107 mEq/L (98-107); Glucose 90 mg/dL (70-105); Osmolality,Calculated 281 (280-300); Sodium 136 mEq/L (136-145); eGFR For Non-African Americans > 60 (> 60)
--- NOTE | 2018-03-10 10:01 | Pulmonology Progress Note ---
<Vineet Newby - Last Filed: 03/10/18 14:00> Date of Encounter: 03/10/18 Time of Encounter: 09:00 Assessment and Plan (1) Pleural effusion Current Visit: Yes Status: Acute -Had a massive pleural effusion and she underwent right sided thoracentesis which drained approximately 1.5 L of serosanguineous fluid. -Pleural fluid is exudative in nature (pleural protein/serum protein = 0.75) . Awaiting pleural cytology studies. With the new CT findings of heterogenous mass near the anterior mediastinum, diffuse mediastinal lymphadenopathy involving the paratracheal, subcarinal and right right suprahilar region, one cannot rule out the possibility of malignancy. -patient will need a pleurx catheter before she gets dischagred because of risk of reuccrence . (2) Chest pain Current Visit: Yes Status: Acute -She came to the ER with chest pain was found to have a right-sided massive pleural effusion, she status post thoracentesis. -currently her chest pain has resolved -Continue to monitor. Pain control PRN. Qualifiers: Chest pain type: pleurodynia Qualified Code(s): R07.81 - Pleurodynia (3) Mass of upper lobe of right lung Current Visit: Yes Status: Acute -CT chest reveals a large right upper lobe heterogeneous mass abutting the anterior mediastinum measuring 3.5 x 3.9 cm., diffuse mediastinal lymphadenopathy involving the paratracheal, subcarinal and right suprahilar regions, pleural-based nodules seen throughout the right chest, with diffuse pleural enhancement and a large right-sided pleural effusion- Nix could be concerning for malignancy. -Currently pleural cultures and cytology studies pending. - Pleural cytology results showed adenocarcinoma . Oncology following, recommendations appreciated. Subjective Principal diagnosis: pleural effusion Interval history: 03/10 patient had no acute events overnight. denies any chest pain, SOB, palpitation . Her pleural cytology studies showed that she has adenocarcinoma of the lung . Oncology is on board in order to discuss possible optins Radiotion/ chemotherapy. from our stand point she will need a pleurx catheter before she goes home because there is a high possibility of recurrence of the pleural effusion 03/09 No acute events overnight. Patient is status post right sided thoracentesis which drained approximately 1.5 L of serosanguineous pleural fluid. Plueral cytology studies and cultures are pending. She endorses a right-sided chest pain which is non- positional, also endorses mild coughing. Patient underwent CT of her chest which showed right upper lobe heterogenous mass abutting the anterior mediastinum measuring 3.5 x 3.9 cm., diffuse mediastinal lymphadenopathy involving the paratracheal, subcarinal and right suprahilar regions, pleural-based nodules seen throughout the right chest, with diffuse pleural enhancement and a large right-sided pleural effusion. Findings are concerning for malignancy either primary or metastatis. oncology is on board. Objective PUL Vital signs: Last Vital Signs Temp 98.1 F 03/10/18 06:29 Pulse 85 03/10/18 06:29 Resp 14 03/10/18 06:29 BP 120/83 03/10/18 06:29 Pulse Ox 96 03/10/18 06:29 General appearance: no acute distress Auscultation: bilateral: clear Percussion: bilateral: not dull Cardiovascular: regular rate and rhythm Gastrointestinal: soft, non-tender, non-distended Extremities: no cyanosis, no edema, no clubbing Results - Laboratory Findings CBC and BMP: 03/10/18 09:11 03/10/18 09:11 PT/INR, D-dimer PT 12.0 Seconds (9.4-12.1) 03/10/18 05:32 Abnormal lab findings: Abnormal lab results Carbon Dioxide 21 mEq/L (23-29) L 03/10/18 09:11 Creatinine 0.54 mg/dL (0.60-1.20) L 03/10/18 09:11 POC Glucose 107 mg/dL (70-99) H 03/09/18 11:12 - Clinical Findings Intake & Output: Intake & Output 03/09/18 03/10/18 03/10/18 23:59 07:59 15:59 Intake Total 120 / 120 450 / 450 Output Total 0 / 0 Balance 120 / 120 450 / 450 Weight 52 kg Consult Discharge Plan - Plan Referrals: Iker Melissa DO [Resident] - 03/18/18 3:30 pm (New patient and hospital follow up. Packet will be mailed to patient before appointment, patient needs to fill out packet before appointment. Also, bring Insurance Card and medication list etc. to appointment. If patient needs to cancel appointment needs to be done 24 hour in advance per office policy. ) <Citlaly Wagner - Last Filed: 03/11/18 08:24> Date of Encounter: 03/11/18 Objective PUL Vital signs: Last Vital Signs Temp 98.2 F 03/11/18 06:57 Pulse 93 03/11/18 06:57 Resp 16 03/11/18 06:57 BP 118/80 03/11/18 06:57 Pulse Ox 95 03/11/18 06:57 Results - Laboratory Findings CBC and BMP: 03/10/18 09:11 03/10/18 09:11 PT/INR, D-dimer PT 12.0 Seconds (9.4-12.1) 03/10/18 05:32 Abnormal lab findings: Abnormal lab results Carbon Dioxide 21 mEq/L (23-29) L 03/10/18 09:11 Creatinine 0.54 mg/dL (0.60-1.20) L 03/10/18 09:11 POC Glucose 107 mg/dL (70-99) H 03/09/18 11:12 - Clinical Findings Intake & Output: Intake & Output 03/10/18 03/11/18 03/11/18 23:59 07:59 15:59 Intake Total 151 / 151 Output Total 200 / 200 Balance -49 / -49 Weight 53 kg - Attending Attestation Patient was seen and examined on 03/10/18 and this note was signed on 03/11/18. I examined this patient and my medical decision-making was reviewed with the Resident Physician. I agree with the documented findings, disposition and treatment plan as described except to the extent set forth below. Patient seen and examined. Labs, radiology, chart personally reviewed. Agree with resident's history and physical, assessment, plan with following comments: REMODELER: Patient follows commands, Pulmonary: Acceptable oxygenation and ventilation. Patient is not in any distress and discussed with the oncology and most likely she will need PleurX pleural catheter which can be done as outpatient if needed. No plan for bronchoscopy.
--- NOTE | 2018-03-10 14:10 | Oncology Inp Progress Note ---
<Sofi Villanueva L - Last Filed: 03/10/18 17:56> Date of Encounter: 03/10/18 Time of Encounter: 13:45 (1) Adenocarcinoma of lung Current Visit: Yes Status: Acute Assessment and plan: CT chest reveals a large right upper lobe heterogeneous mass abutting the anterior mediastinum measuring 3.5 x 3.9 cm., diffuse mediastinal lymphadenopathy involving the paratracheal, subcarinal and right suprahilar regions, pleural-based nodules seen throughout the right chest, with diffuse pleural enhancement and a large right-sided pleural effusion. CT Abdomen/pelvis reveals 4 tiny hepatic lesions very likely reflect cysts, unable to definitively characterize on CT and Indeterminate uterine findings. CBC and CMP mainly unremarkable, LDH normal S/P right thoracentesis-cytology pathology reveals adenocarcinoma cells consistent with lung primary. Discussed in tumor board this morning, we have sufficient cells for mutation analysis, no tissue biopsy is needed at this time. 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 Plan as above discussed with patient at bedside, prognosis and staging discussed. Qualifiers: Qualified Code(s): C34.91 - Malignant neoplasm of unspecified part of right bronchus or lung Oncology: Subj Interval history: Ms. Jauregui is resting in bed. She reports right scapular pain, reports pain medication effective. No numbness, tingling, urinary symptoms, nausea, vomiting , diarrhea or calf pain. She continues to experience SOB and cough but symptoms are stable - Constitutional Vitals: Vital Signs Temp Pulse Resp BP Pulse Ox 03/10/18 11:10 98.1 F 87 16 108/72 100 03/10/18 11:03 18 97 03/10/18 06:29 98.1 F 85 14 120/83 96 03/10/18 04:23 16 95 03/10/18 03:09 98.0 F 84 16 114/79 95 03/09/18 21:34 16 96 03/09/18 19:19 98.1 F 102 14 130/89 95 Intake and Output 03/09/18 03/10/18 03/10/18 23:59 07:59 15:59 Intake Total 120 / 120 450 / 450 Output Total 0 / 0 Balance 120 / 120 450 / 450 Intake: IV Fluids 350 / 350 Levaquin Premix 750mg/150 mL 150 / 150 750 mg In 150 ml @ 100 mls/hr IVPB HS SANDEEP Rx#:[id number] Zosyn 3.375 GM In 0.9 % Sodium 200 / 200 Chloride (Mini-Bag +) 100 ML @ 25 mls/hr IVPB Q8HR SANDEEP Rx#: [id number] Oral 120 / 120 100 / 100 Output: Urine 0 / 0 Other: Meal Dinner Percent of Meal Consumed 0% # Voids 1 1 Weight 52 kg Patient Weight 03/10/18 23:59 Weight 52 kg General appearance: cooperative, no acute distress, no febrile - Head Head exam: Present: atraumatic - ENT ENT exam: Present: mucous membranes moist - Respiratory Additional comments: Right lung-decreased throughout - Cardiovascular Cardiovascular exam: Present: RRR, +S1, +S2 - GI/Abdominal GI/Abdominal exam: Present: normal bowel sounds, soft. Absent: guarding, rebound, tenderness - Extremities Exam Extremities exam: Absent: calf tenderness - Neurological Exam Neurological exam: Present: alert, oriented X3, no focal deficits, strengths equal and symetr throughout - Psychiatric Psychiatric exam: Present: normal affect, normal mood - Skin Skin exam: Present: dry, intact, normal color, warm Oncology: Obj Data - Labs CBC & Chem 7: 03/10/18 09:11 03/10/18 09:11 Labs: Laboratory Results - last 24 hr 03/10/18 03/10/18 03/10/18 05:32 09:11 09:11 WBC 7.7 RBC 4.45 Hgb 13.4 Hct 40.9 MCV 91.9 MCH 30.1 MCHC 32.8 RDW 13.8 Plt Count 295 MPV 9.8 Immature Gran % 0.3 Seg Neutrophils % 69.9 Lymphocytes % 19.9 Monocytes % 5.9 Eosinophils % 3.4 Basophils % 0.6 Neutrophils # 5.4 Lymphocytes # 1.5 Monocytes # 0.5 Eosinophils # 0.3 Basophils # 0.1 PT 12.0 INR 1.1 Sodium 136 Potassium 4.0 Chloride 107 Carbon Dioxide 21 L BUN 10 Creatinine 0.54 L Est GFR ( Amer) > 60 Est GFR (Non-Af Amer) > 60 BUN/Creatinine Ratio 19 Glucose 90 Calculated Osmolality 281 Calcium 9.0 - Impressions Impressions Abdomen/Pelvis CT 03/09/18 12:30 IMPRESSION: 1. 4 tiny hepatic lesions very likely reflect cysts, unable to definitively characterize on CT. 2. Enhancing pleural-based lesions are noted inferior right hemithorax typical of metastasis. 3. Indeterminate uterine findings may be related to endometrial neoplasia or fibroids. Ultrasound correlation may be useful for better characterization. D/ / Fili Perez / Fili Perez Interpreting Provider: Fili Perez - ABG Interpretation ABG results: PT/INR, D-dimer PT 12.0 Seconds (9.4-12.1) 03/10/18 05:32 Consult Discharge Plan - Plan Referrals: Iker Melissa DO [Resident] - 03/18/18 3:30 pm (New patient and hospital follow up. Packet will be mailed to patient before appointment, patient needs to fill out packet before appointment. Also, bring Insurance Card and medication list etc. to appointment. If patient needs to cancel appointment needs to be done 24 hour in advance per office policy. ) Inpatient Charges Provider: Dr. Lilliana Dela Cruz <Aiden Silver - Last Filed: 03/11/18 07:49> Date of Encounter: 03/11/18 Oncology: Subj Interval history: I examined this patient and my medical decision-making was reviewed with the Advanced Practice Nurse, Sofi Villanueva. I agree with the documented findings, disposition and treatment plan as described except to the extent set forth below. PAtient was seen and examined with language interpretive services, diagnosis palliative treatment discussed in detail bedside. Agree with pleurex catheter rt chest prior to hospital discharge. Out patient PET imaging and f/u on mutation/sequencing on path specimen. - Constitutional Vitals: Vital Signs Temp Pulse Resp BP Pulse Ox 03/11/18 06:57 98.2 F 93 16 118/80 95 03/11/18 04:59 97.5 F L 98 16 122/83 95 03/11/18 04:19 16 97 03/10/18 23:25 98.4 F 95 14 115/81 96 03/10/18 19:11 98.3 F 108 14 128/93 94 03/10/18 16:17 18 97 03/10/18 16:08 98.3 F 90 18 124/88 94 03/10/18 11:10 98.1 F 87 16 108/72 100 03/10/18 11:03 18 97 Intake and Output 03/10/18 03/10/18 03/11/18 15:59 23:59 07:59 Intake Total 100 / 100 151 / 151 Output Total 200 / 200 Balance 100 / 100 -49 / -49 Intake: IV Fluids 100 / 100 150 / 150 Levaquin Premix 750mg/150 mL 150 / 150 750 mg In 150 ml @ 100 mls/hr IVPB HS SANDEEP Rx#:[id number] Zosyn 3.375 GM In 0.9 % Sodium 100 / 100 Chloride (Mini-Bag +) 100 ML @ 25 mls/hr IVPB Q8HR SANDEEP Rx#: [id number] Oral Output: Urine 200 / 200 Other: # Voids 1 1 1 # Bowel Movements 0 Weight 53 kg Patient Weight 03/11/18 23:59 Weight 53 kg Oncology: Obj Data - Labs CBC & Chem 7: 03/10/18 09:11 03/10/18 09:11 Labs: Laboratory Results - last 24 hr 03/10/18 03/10/18 09:11 09:11 WBC 7.7 RBC 4.45 Hgb 13.4 Hct 40.9 MCV 91.9 MCH 30.1 MCHC 32.8 RDW 13.8 Plt Count 295 MPV 9.8 Immature Gran % 0.3 Seg Neutrophils % 69.9 Lymphocytes % 19.9 Monocytes % 5.9 Eosinophils % 3.4 Basophils % 0.6 Neutrophils # 5.4 Lymphocytes # 1.5 Monocytes # 0.5 Eosinophils # 0.3 Basophils # 0.1 Sodium 136 Potassium 4.0 Chloride 107 Carbon Dioxide 21 L BUN 10 Creatinine 0.54 L Est GFR ( Amer) > 60 Est GFR (Non-Af Amer) > 60 BUN/Creatinine Ratio 19 Glucose 90 Calculated Osmolality 281 Calcium 9.0 - Impressions Impressions Brain MRI 03/10/18 18:32 IMPRESSION: Right frontal parasagittal enhancing lesion likely representing a metastatic lesion. A small amount of surrounding edema is noted Multifocal small-vessel ischemic change bilaterally Slight heterogeneous signal in the clivus and the C2 vertebral body. These areas are nonspecific. Small metastatic lesions would be difficult to exclude. D/ / Tee Kamara / Tee Kamara Interpreting Provider: Tee Kamara - ABG Interpretation ABG results: PT/INR, D-dimer PT 12.0 Seconds (9.4-12.1) 03/10/18 05:32 Inpatient Charges Provider: Dr. Marco Silver Follow up - Inpatient: [id number]
[2018-03-10] MEDS ORDERED: Gadolinium Contrast Agent (WT Based) IV PRN (18:32)
--- NOTE | 2018-03-10 19:45 | Internal Med Progress Note ---
Hospitalist Progress Note - Encounter Date of Encounter: 03/10/18 Time of Encounter: 11:00 - Subjective Interval History: Patient reports that shortness of breath has improved status post thoracentesis were over 1.5 L of serosanguineous fluid was drained; cytology pending CT of the chest with findings concerning for malignancy; hematology/oncology following Patient scheduled for Pleurx catheter due to risk for recurrence per pulmonology recommendations Cytology positive for adenocarcinoma and oncology following for recommendations - Exam Vitals: Temp Pulse Resp BP Pulse Ox 98.3 F 108 14 128/93 94 03/10/18 19:11 03/10/18 19:11 03/10/18 19:11 03/10/18 19:11 03/10/18 19:11 Exam: Gen.: Nonacute distress, alert and oriented 3 ENT: Mucosal membranes moist Respiratory: Lungs are clear to auscultation bilaterally without any wheezing rhonchi or rales Cardiovascular: Normal S1 and S2 regular rate rhythm no murmurs rubs or gallops Abdomen: Soft, nontender and nondistended with positive bowel sounds Extremities: No lower extremity edema Skin: Normal color - Assessment and Plan (1) Pleural effusion Current Visit: Yes Status: Acute (2) Mass of upper lobe of right lung Current Visit: Yes Status: Acute Assessment and Plan: Repeat CT of the chest showed a large right upper lobe heterogeneous mass abutting the anterior mediastinum you in addition to diffuse mediastinal lymphadenopathy involving the peritracheal, subcarinal and right suprahilar regions also seen were several metastatic pleural-based nodules seen throughout the right chest. Pleural cytology with findings for adenocarcinoma Hematology oncology following and appreciate recommendations DVT Prophylaxis: Heparin subcutaneous - Time Spent with Patient Total time spent is greater than 50% in coordination of care (as documented) at patient's floor/unit and/or counseling patient: Internal Medicine: Result - Labs CBC & Chem 7: 03/10/18 09:11 03/10/18 09:11 Labs: Short CBC 03/10/18 Range/Units 09:11 WBC 7.7 (4.3-11.1) K/mcL Hgb 13.4 (11.5-15.4) g/dL Hct 40.9 (35.3-44.9) % Plt Count 295 (140-400) K/mcL Neutrophils # 5.4 (1.6-8.9) K/mcL BMP 03/10/18 09:11 Sodium 136 Potassium 4.0 Chloride 107 Carbon Dioxide 21 L BUN 10 Creatinine 0.54 L Glucose 90 Calcium 9.0 - ABG Interpretation ABG results: PT/INR, D-dimer PT 12.0 Seconds (9.4-12.1) 03/10/18 05:32 Consult Discharge Plan - Plan Referrals: Iker Melissa DO [Resident] - 03/18/18 3:30 pm (New patient and hospital follow up. Packet will be mailed to patient before appointment, patient needs to fill out packet before appointment. Also, bring Insurance Card and medication list etc. to appointment. If patient needs to cancel appointment needs to be done 24 hour in advance per office policy. )
[2018-03-10] MEDS: Levofloxacin 750 MG/150 ML 750 MG/150 ML BAG IVPB SCH (22:23)
[2018-03-11] MEDS: Ipratropium/Albuterol Neb 3 ML IH SCH ×4 (04:16→22:20)
[2018-03-11] MEDS: *HR* Heparin 5,000 UNIT/ML VIAL SQ SCH ×2 (05:05→17:04)
[2018-03-11] MEDS: *HR* HYDROcodone/Acet 5/325 mg TABLET PO PRN ×2 (05:05→17:04)
--- NOTE | 2018-03-11 07:59 | Pulmonology Progress Note ---
<Citlaly Wagner M - Last Filed: 03/11/18 10:55> Date of Encounter: 03/11/18 Objective PUL Vital signs: Last Vital Signs Temp 98.1 F 03/11/18 10:30 Pulse 85 03/11/18 10:30 Resp 16 03/11/18 10:30 BP 124/85 03/11/18 10:30 Pulse Ox 99 03/11/18 10:30 Results - Laboratory Findings CBC and BMP: 03/10/18 09:11 03/10/18 09:11 PT/INR, D-dimer PT 12.0 Seconds (9.4-12.1) 03/10/18 05:32 Abnormal lab findings: Abnormal lab results Carbon Dioxide 21 mEq/L (23-29) L 03/10/18 09:11 Creatinine 0.54 mg/dL (0.60-1.20) L 03/10/18 09:11 POC Glucose 107 mg/dL (70-99) H 03/09/18 11:12 - Clinical Findings Intake & Output: Intake & Output 03/10/18 03/11/18 03/11/18 23:59 07:59 15:59 Intake Total 151 / 151 120 / 120 Output Total 200 / 200 Balance -49 / -49 120 / 120 Weight 53 kg Consult Discharge Plan - Plan Referrals: Iker Melissa DO [Resident] - 03/18/18 3:30 pm (New patient and hospital follow up. Packet will be mailed to patient before appointment, patient needs to fill out packet before appointment. Also, bring Insurance Card and medication list etc. to appointment. If patient needs to cancel appointment needs to be done 24 hour in advance per office policy. ) Prescriptions: Dexamethasone [Decadron] 4 mg PO BID #28 tablet - Attending Attestation I examined this patient and my medical decision-making was reviewed with the Resident Physician. I agree with the documented findings, disposition and treatment plan as described except to the extent set forth below. Patient seen and examined. Labs, radiology, chart personally reviewed. Agree with resident's history and physical, assessment, plan with following comments: ACCOUNT SERVICE REPRESENTATIVE: Patient follows commands, Pulmonary: Acceptable oxygenation and ventilation. Patient complaining of the right side chest pain and clinically there is evidence of pleural effusion and I suspect eventually she will need pleural Pleurx catheter that can be done as outpatient. Oncology is following and hopefully radiation might help her chest pain. Please call for any questions and patient can be seen as outpatient if needed for after placement. <Vineet Newby - Last Filed: 03/11/18 17:13> Date of Encounter: 03/11/18 Time of Encounter: 09:00 Assessment and Plan (1) Pleural effusion Current Visit: Yes Status: Acute -Had a massive pleural effusion and she underwent right sided thoracentesis which drained approximately 1.5 L of serosanguineous fluid. -Pleural fluid is exudative in nature (pleural protein/serum protein = 0.75) . Awaiting pleural cytology studies. With the new CT findings of heterogenous mass near the anterior mediastinum, diffuse mediastinal lymphadenopathy involving the paratracheal, subcarinal and right right suprahilar region, one cannot rule out the possibility of malignancy. -patient needs to follow-up with pulmonology as an outpatient for placement of pleurx catheter because of high risk of recurrence of pleural effusion . (2) Chest pain Current Visit: Yes Status: Acute -She came to the ER with chest pain was found to have a right-sided massive pleural effusion, she status post thoracentesis. -currently her chest pain has resolved. Qualifiers: Chest pain type: pleurodynia Qualified Code(s): R07.81 - Pleurodynia (3) Mass of upper lobe of right lung Current Visit: Yes Status: Acute -CT chest reveals a large right upper lobe heterogeneous mass abutting the anterior mediastinum measuring 3.5 x 3.9 cm., diffuse mediastinal lymphadenopathy involving the paratracheal, subcarinal and right suprahilar regions, pleural-based nodules seen throughout the right chest, with diffuse pleural enhancement and a large right-sided pleural effusion- Nix could be concerning for malignancy. The most recent MRI of the brain also revealed parasagittal enhancing lesion likely metastatic in nature. She has been prescribed Decadron 4 mg twice a day which is to be continued at discharge. Oncology recommended for further [facility] -Pleural study showed a grade 4 adenocarcinoma. Prognosis has been discussed with the patient and she understands that the treatment options are available which would help with symptom control and length of survival. However, this type of advanced lung cancer is virtually incurable - Pleural cytology results showed grade IV adenocarcinoma . Oncology following - PET scan to be done as an outpatient. Subjective Principal diagnosis: pleural effusion Interval history: 03/10 patient had no acute events overnight. denies any chest pain, SOB, palpitation . Her pleural cytology studies showed that she has adenocarcinoma of the lung . Oncology is on board in order to discuss possible optins Radiotion/ chemotherapy. from our stand point she will need a pleurx catheter before she goes home because there is a high possibility of recurrence of the pleural effusion 03/09 No acute events overnight. Patient is status post right sided thoracentesis which drained approximately 1.5 L of serosanguineous pleural fluid. Plueral cytology studies and cultures are pending. She endorses a right-sided chest pain which is non- positional, also endorses mild coughing. Patient underwent CT of her chest which showed right upper lobe heterogenous mass abutting the anterior mediastinum measuring 3.5 x 3.9 cm., diffuse mediastinal lymphadenopathy involving the paratracheal, subcarinal and right suprahilar regions, pleural-based nodules seen throughout the right chest, with diffuse pleural enhancement and a large right-sided pleural effusion. Findings are concerning for malignancy either primary or metastatis. oncology is on board. Objective PUL Vital signs: Last Vital Signs Temp 98.2 F 03/11/18 06:57 Pulse 93 03/11/18 06:57 Resp 16 03/11/18 06:57 BP 118/80 03/11/18 06:57 Pulse Ox 95 03/11/18 06:57 General appearance: no acute distress Effort: normal Auscultation: bilateral: clear Cardiovascular: regular rate and rhythm Gastrointestinal: normoactive bowel sounds, soft, non-tender, non-distended Extremities: no cyanosis, no edema, no clubbing Results - Laboratory Findings CBC and BMP: 03/11/18 10:43 03/11/18 10:43 PT/INR, D-dimer PT 12.0 Seconds (9.4-12.1) 03/10/18 05:32 Abnormal lab findings: Abnormal lab results Carbon Dioxide 21 mEq/L (23-29) L 03/10/18 09:11 Creatinine 0.54 mg/dL (0.60-1.20) L 03/10/18 09:11 POC Glucose 107 mg/dL (70-99) H 03/09/18 11:12 - Clinical Findings Intake & Output: Intake & Output 03/10/18 03/10/18 03/11/18 15:59 23:59 07:59 Intake Total 100 / 100 151 / 151 Output Total 200 / 200 Balance 100 / 100 -49 / -49 Weight 53 kg
--- NOTE | 2018-03-11 10:40 | Internal Med Progress Note ---
Hospitalist Progress Note - Encounter Date of Encounter: 03/11/18 - Subjective Interval History: Patient reports that shortness of breath has improved status post thoracentesis were over 1.5 L of serosanguineous fluid was drained; cytology pending CT of the chest with findings concerning for malignancy; hematology/oncology following Patient scheduled for Pleurx catheter due to risk for recurrence per pulmonology recommendations Cytology positive for adenocarcinoma and oncology following for recommendations - Exam Vitals: Temp Pulse Resp BP Pulse Ox 98.1 F 85 16 124/85 99 03/11/18 10:30 03/11/18 10:30 03/11/18 10:30 03/11/18 10:30 03/11/18 10:30 - Assessment and Plan (1) Pleural effusion Current Visit: Yes Status: Acute Assessment and Plan: Large right pleural effusion detected on imaging and pulmonology consulted status post thoracentesis with over 1.5 L of serosanguineous fluid removed Pulmonology with recommendations for Pleurx catheter due to risk of recurrence Cytology positive for adenocarcinoma Hematology/oncology following as below (2) Mass of upper lobe of right lung Current Visit: Yes Status: Acute Assessment and Plan: Repeat CT of the chest showed a large right upper lobe heterogeneous mass abutting the anterior mediastinum you in addition to diffuse mediastinal lymphadenopathy involving the peritracheal, subcarinal and right suprahilar regions also seen were several metastatic pleural-based nodules seen throughout the right chest. Pleural cytology with findings for adenocarcinoma Hematology oncology following and appreciate recommendations DVT Prophylaxis: Heparin subcutaneous - Time Spent with Patient Total time spent is greater than 50% in coordination of care (as documented) at patient's floor/unit and/or counseling patient: Internal Medicine: Result - Labs CBC & Chem 7: 03/10/18 09:11 03/10/18 09:11 - ABG Interpretation ABG results: PT/INR, D-dimer PT 12.0 Seconds (9.4-12.1) 03/10/18 05:32 - Impressions Impressions Brain MRI 03/10/18 18:32 IMPRESSION: Right frontal parasagittal enhancing lesion likely representing a metastatic lesion. A small amount of surrounding edema is noted Multifocal small-vessel ischemic change bilaterally Slight heterogeneous signal in the clivus and the C2 vertebral body. These areas are nonspecific. Small metastatic lesions would be difficult to exclude. D/ / Tee Kamara / Tee Kamara Interpreting Provider: Tee Kamara Consult Discharge Plan - Plan Referrals: Iker Melissa DO [Resident] - 03/18/18 3:30 pm (New patient and hospital follow up. Packet will be mailed to patient before appointment, patient needs to fill out packet before appointment. Also, bring Insurance Card and medication list etc. to appointment. If patient needs to cancel appointment needs to be done 24 hour in advance per office policy. )
[2018-03-11 11:16] LABS: Basophils # 0.1 K/mcL (0.0-0.2); Basophils % 0.7 %; Eosinophils # 0.3 K/mcL (0.0-0.6); Hematocrit 41.3 % (35.3-44.9); Hemoglobin 13.9 g/dL (11.5-15.4); Immature Granulocytes % 0.4 % (0-4); Lymphocytes # 1.4 K/mcL (0.6-4.6); Lymphocytes % 19.6 %; Mean Corpuscular HGB Conc 33.7 g/dL (31.6-35.5); Mean Corpuscular Hemoglobin 30.2 pg (28.0-33.3); Mean Corpuscular Volume 89.8 fL (83.0-100.0); Mean Platelet Volume 10.2 fL (9.4-12.4); Monocytes # 0.5 K/mcL (0.0-1.3); Monocytes % 6.5 %; Platelet Count 308 K/mcL (140-400); Red Cell Distribution Width 13.6 % (11.5-14.5); Segmented Neutrophils % 68.8 %
[2018-03-11 11:26] LABS: BUN/Creatinine Ratio 20 (6-26); Blood Urea Nitrogen 11 mg/dL (6-20); Calcium 9.1 mg/dL (8.6-10.3); Carbon Dioxide 24 mEq/L (23-29); Chloride 103 mEq/L (98-107); Glucose 143 mg/dL (70-105); Osmolality,Calculated 282 (280-300); Potassium 3.6 mEq/L (3.5-5.1); Sodium 135 mEq/L (136-145); eGFR For Non-African Americans > 60 (> 60)
--- NOTE | 2018-03-11 15:40 | Oncology Inp Progress Note ---
<Sofi Villanueva Amber - Last Filed: 03/11/18 20:18> Date of Encounter: 03/11/18 Time of Encounter: 13:00 (1) Adenocarcinoma of lung Status: Acute Assessment and plan: CT chest reveals a large right upper lobe heterogeneous mass abutting the anterior mediastinum measuring 3.5 x 3.9 cm., diffuse mediastinal lymphadenopathy involving the paratracheal, subcarinal and right suprahilar regions, pleural-based nodules seen throughout the right chest, with diffuse pleural enhancement and a large right-sided pleural effusion. CT Abdomen/pelvis reveals 4 tiny hepatic lesions very likely reflect cysts, unable to definitively characterize on CT and Indeterminate uterine findings. S/P right thoracentesis-cytology pathology reveals adenocarcinoma cells consistent with lung primary. Discussed in tumor board this morning, we have sufficient cells for mutation analysis, no tissue biopsy is needed at this time. MRI Brain reveals right frontal parasagittal enhancing lesion likely representing a metastatic lesion. A small amount of surrounding edema is noted. Slight heterogeneous signal in the clivus and the C2 vertebral body. Stage IV lung adenocarcinoma with malignant effusion and solitary brain metastases. Prognosis again discussed, patient understands that treatment options are available which will help with symptom control/length of survival, but this type of extensive stage lung cancer is incurable. PET scan to be obtained on outpatient basis Discussed pleurx catheter-patient amendable to placement, pulmonology planning to place as outpatient Further treatment discussion to follow once mutation analysis results are received. Follow up information given in detail along with contact numbers. Patient has given consent for us to contact her son, Cordell, if we need to communicate appointment information. Cordell can be reached at [phone]. Plan as above discussed with patient at bedside, prognosis and staging discussed. Qualifiers: Qualified Code(s): C34.91 - Malignant neoplasm of unspecified part of right bronchus or lung (2) Lesion of right frontal lobe of brain Status: Acute Assessment and plan: MRI Brain reveals right frontal parasagittal enhancing lesion likely representing a metastatic lesion. A small amount of surrounding edema is noted. Decadron 4 mg BID initiated, please continue at discharge Importance of medication discussed with patient Discussed with radiation oncology for referral to [facility]---patient is to be called with this appointment. Oncology: Subj Interval history: Ms. Jauregui is resting in bed. She reports pain to her right shoulder, the pain medication is effective but she feels as though her right shoulder pain is still not at a completely tolerable level. She appears to be concerned to take the pain medication due to the effects it may have. Discussed adding lidocaine patch which has no side effects. She reports should pain and pain to her mid chest, no odynophagia or dysphagia. She denies headache, visual change, difficulty with ambulation, immablance or dizziness, nausea, vomiting or hemoptysis. Appetite is poor. A system approved interpreting service was utilized for our conversation - Constitutional Vitals: Vital Signs Temp Pulse Resp BP Pulse Ox 03/11/18 14:26 98.2 F 100 16 125/87 92 03/11/18 10:50 12 99 03/11/18 10:30 98.1 F 85 16 124/85 99 03/11/18 06:57 98.2 F 93 16 118/80 95 03/11/18 04:59 97.5 F L 98 16 122/83 95 03/11/18 04:19 16 97 03/10/18 23:25 98.4 F 95 14 115/81 96 03/10/18 19:11 98.3 F 108 14 128/93 94 03/10/18 16:17 18 97 03/10/18 16:08 98.3 F 90 18 124/88 94 Intake and Output 03/10/18 03/11/18 03/11/18 23:59 07:59 15:59 Intake Total 151 / 151 120 / 120 Output Total 200 / 200 Balance -49 / -49 120 / 120 Intake: IV Fluids 150 / 150 Levaquin Premix 750mg/150 mL 150 / 150 750 mg In 150 ml @ 100 mls/hr IVPB [facility] Rx#:[id number] Oral 120 / 120 Output: Urine 200 / 200 Other: Meal Lunch Percent of Meal Consumed 5% # Voids 1 1 1 # Bowel Movements 0 0 Weight 53 kg Patient Weight 03/11/18 23:59 Weight 53 kg General appearance: cooperative, no acute distress, no febrile - Head Head exam: Present: atraumatic - ENT ENT exam: Present: mucous membranes moist - Respiratory Respiratory exam: Present: CTAB. Absent: respiratory distress Additional comments: decreased LS RLL - Cardiovascular Cardiovascular exam: Present: RRR, +S1, +S2 - GI/Abdominal GI/Abdominal exam: Present: normal bowel sounds, soft. Absent: guarding, rebound, tenderness - Extremities Exam Extremities exam: Present: normal inspection. Absent: calf tenderness - Neurological Exam Neurological exam: Present: alert, oriented X3, no focal deficits, strengths equal and symetr throughout - Psychiatric Psychiatric exam: Present: normal affect, normal mood - Skin Skin exam: Present: dry, intact, normal color, warm Oncology: Obj Data - Labs CBC & Chem 7: 03/11/18 10:43 03/11/18 10:43 Labs: Laboratory Results - last 24 hr 03/08/18 03/11/18 03/11/18 11:47 10:43 10:43 WBC 7.2 RBC 4.60 Hgb 13.9 Hct 41.3 MCV 89.8 MCH 30.2 MCHC 33.7 RDW 13.6 Plt Count 308 MPV 10.2 Immature Gran % 0.4 Seg Neutrophils % 68.8 Lymphocytes % 19.6 Monocytes % 6.5 Eosinophils % 4.0 Basophils % 0.7 Neutrophils # 5.0 Lymphocytes # 1.4 Monocytes # 0.5 Eosinophils # 0.3 Basophils # 0.1 Sodium 135 L Potassium 3.6 Chloride 103 Carbon Dioxide 24 BUN 11 Creatinine 0.55 L Est GFR ( Amer) > 60 Est GFR (Non-Af Amer) > 60 BUN/Creatinine Ratio 20 Glucose 143 H Calculated Osmolality 282 Calcium 9.1 Pleur Adenosine Deamin <1.6 - Impressions Impressions Brain MRI 03/10/18 18:32 IMPRESSION: Right frontal parasagittal enhancing lesion likely representing a metastatic lesion. A small amount of surrounding edema is noted Multifocal small-vessel ischemic change bilaterally Slight heterogeneous signal in the clivus and the C2 vertebral body. These areas are nonspecific. Small metastatic lesions would be difficult to exclude. D/ / Tee Kamara / Tee Kamara Interpreting Provider: Tee Kamara - ABG Interpretation ABG results: PT/INR, D-dimer PT 12.0 Seconds (9.4-12.1) 03/10/18 05:32 Consult Discharge Plan - Plan Instructions: Lung Cancer (DC) Referrals: Iker Melissa DO [Resident] - 03/18/18 3:30 pm (New patient and hospital follow up. Packet will be mailed to patient before appointment, patient needs to fill out packet before appointment. Also, bring Insurance Card and medication list etc. to appointment. If patient needs to cancel appointment needs to be done 24 hour in advance per office policy. ) Prescriptions: Dexamethasone [Decadron] 4 mg PO BID #28 tablet Inpatient Charges Provider: Dr. Lilliana Dela Cruz <Angie Dela Cruz S - Last Filed: 03/14/18 16:41> Date of Encounter: 03/11/18 Oncology: Obj Data - Labs CBC & Chem 7: 03/11/18 10:43 03/11/18 10:43 - ABG Interpretation ABG results: PT/INR, D-dimer PT 12.0 Seconds (9.4-12.1) 03/10/18 05:32 Inpatient Charges Provider: Dr. Lilliana Dela Cruz Follow up - Inpatient: [id number] - Attending Attestation I examined this patient and my medical decision-making was reviewed with the Advanced Practice Nurse. I agree with the documented findings, disposition and treatment plan as described except to the extent set forth below. 1. Metastatic adenocarcinoma of lung. She is a nonsmoker mutation descent. She has likelihood of EGFR mutation. Recommend next generation sequencing and PDL one testing CT chest reveals a large right upper lobe heterogeneous mass abutting the anterior mediastinum measuring 3.5 x 3.9 cm., diffuse mediastinal lymphadenopathy involving the paratracheal, subcarinal and right suprahilar regions, pleural-based nodules seen throughout the right chest, with diffuse pleural enhancement and a large right-sided pleural effusion. Isolated 1.3 cm right frontal metastasis with small amount of edema. She is fairly asymptomatic. We will arrange for [facility] treatment. Continue by mouth Decadron 4 mg by mouth twice a day Had a long discussion with her through an organ fixer. Her brother had lower extremity malignancy could be a sarcoma and he of metastasis She is very anxious. Discussed with her that it is important to get genetic workup rather than jumping into treatment. People who have EGFR mutation upfront EGFR directed therapy is beneficial. Also up front PDL 1 block or could be beneficial as well if she has high PDL 1 expression. Usually PDL 1 expression is not high in nonsmokers
--- NOTE | 2018-03-11 16:39 | Discharge Summary ---
- NOTES TO OUTPATIENT PROVIDER Notes to Outpatient Provider: Patient to follow-up with hematology oncology for malignancy workup and with pulmonology for Pleurx catheter Orders not resulted at time of discharge: Pending orders 03/07/18 21:46 Culture,Sputum with Gram Stain [RM] Stat 03/07/18 22:08 Culture,Blood [BC] Stat 03/09/18 11:12 Cell Count w Diff, Pleural Fld [BF] Stat 03/09/18 11:16 Culture,Body Fluid [RM] Stat 03/09/18 11:28 LDH,Pleural Fluid [BF] Stat Date of Encounter: 03/11/18 Time of Encounter: 11:00 - Discharge Diagnosis (1) Pleural effusion Priority: Primary Status: Acute (2) Mass of upper lobe of right lung Priority: Primary Status: Acute Hospital course: Patient is a 47-year-old female without any past medical history who presented to the ER 03/07/18 due to chest pain. In the ER, chest x-ray showed a large right pleural effusion. Patient was admitted to the medical surgical floor for further evaluation. During patients hospital stay, pulmonology was consulted and paracentesis was done in which 1.5 of serosanguineous fluid restriction. Cytology results were positive for adenocarcinoma. Brain MRI showed right frontal parasagittal enhancing lesion suspicious for metastatic lesion. In addition there is a slight heterogeneous signal in in the clivus and the C2 vertebral body which is nonspecific but small metastatic lesion difficult to exclude. Hematology oncology was consulted with recommendations to discharge patient on Decadron and to follow-up for complete workup for malignancy. Pulmonology also with recommendations for patient to follow-up as an outpatient for consideration of Pleurx catheter due to high risk of pleural effusion reoccurrence. - Time Spent with Patient Total time spent providing and/or coordinating discharge services: Less than 30 minutes - Discharge Medications Prescriptions: Dexamethasone [Decadron] 4 mg PO BID #28 tablet Home Medications: Dexamethasone [Decadron] 4 mg PO BID #28 tablet 03/11/18 [Rx] Allergies/Adverse Reactions: 3 Allergy/AdvReac Type Severity Reaction Status Date / Time No Known Allergies Allergy Verified 03/08/16 14:08 Date of admission: 03/07/18 21:40 Primary care physician: PCP NONE Consults: 03/08/18 00:51 Consult to Promotions Specialist [CONS] Routine Reason for SW Consult: discharge planing; ? unsafe living situaiton; lives with co-workers/roommates - Constitutional Vitals: Temp Pulse Resp BP Pulse Ox 98.2 F 100 16 125/87 95 03/11/18 14:26 03/11/18 14:26 03/11/18 15:47 03/11/18 14:26 03/11/18 15:47 General appearance: Present: cooperative, A&O X 3, pleasant, no acute distress Exam: Gen.: Nonacute distress, alert and oriented 3 ENT: Mucosal membranes moist Respiratory: Lungs are clear to auscultation bilaterally without any wheezing rhonchi or rales Cardiovascular: Normal S1 and S2 regular rate rhythm no murmurs rubs or gallops Abdomen: Soft, nontender and nondistended with positive bowel sounds Extremities: No lower extremity edema Skin: Normal color - Patient Status Disposition: Home, Self-Care Condition: Good - Discharge Instructions Follow Up With: Iker Melissa DO [Resident] - 03/18/18 3:30 pm (New patient and hospital follow up. Packet will be mailed to patient before appointment, patient needs to fill out packet before appointment. Also, bring Insurance Card and medication list etc. to appointment. If patient needs to cancel appointment needs to be done 24 hour in advance per office policy. )
[2018-03-11] MEDS: Levofloxacin 750 MG/150 ML 750 MG/150 ML BAG IVPB SCH (23:33)
[2018-03-12] MEDS: *HR* HYDROcodone/Acet 5/325 mg TABLET PO PRN ×2 (02:22→09:00)
[2018-03-12] MEDS: Ipratropium/Albuterol Neb 3 ML IH SCH ×2 (04:30→10:49)
[2018-03-12] MEDS: *HR* Heparin 5,000 UNIT/ML VIAL SQ SCH (06:38)
[2018-03-12 10:40] VITALS: BP 126/86
--- NOTE | 2018-03-12 12:30 | Event Note ---
Date of Encounter: 03/12/18 Time of Encounter: 10:00 Patient was to be discharged yesterday on 03/11/18 however after discharge orders completed, patient reported that she was not feeling well and did not feel comfortable going home. This morning however patient is smiling and talking on the phone in the bed. She reports of feeling much better and is okay to go home. On brief exam, patient is in no acute distress and alert and oriented 3; normal skin color and mood appropriate Patient will be discharged to follow up with hematology oncology for workup of neoplasm with concerns for metastases to the brain in addition to following up with pulmonology for consideration for Pleurx due to increased risk of recurrence of pleural effusion.
== END 2018-03-12 11:56 | disposition home or self-care (01) | DRG 136 ==
LOC: EMEROOARM 17:28 → 3ANU 17:28 → SUATTDRO 21:40
PROVIDERS: ADMIT Family Medicine; ATTEND Hospitalist